=== PATIENT | female | born 1955 | race African-American/Black ===

== ENCOUNTER 2016-07-27 14:13 | Emergency (ER) | payer OTHER ==
[2016-07-27] MEDS ORDERED: Acetaminophen 500 MG TAB ONE (14:37)
[2016-07-27] MEDS ORDERED: Ibuprofen 200 MG TAB ONE ×2 (14:37→14:56)
[2016-07-27] MEDS ORDERED: cefTRIAXone\\ROCEPHIN 2 GM VIAL ONE (14:37)
[2016-07-27] MEDS ORDERED: Lidocaine 1% 20 ML MDV ONE (14:39)
== END 2016-07-27 15:21 | disposition home or self-care (01) ==
LOC: NAV ERS 14:13
DX: K04.7 Periapical abscess without sinus (principal); L03.211 Cellulitis of face; Z95.0 Presence of cardiac pacemaker
CPT/HCPCS: 96372; J0696; J2001

== ENCOUNTER 2016-12-25 23:24 | Emergency (ER) | payer OTHER ==
--- NOTE | 2016-12-26 07:28 | RAD ---
LEFT ANKLE 3 VIEWS: HISTORY: The patient reports pain. Injury. COMPARISON: None. FINDINGS: There is soft tissue swelling. Joint spaces are preserved. No fracture. No malalignment. Possible degenerative changes and pes planus deformity involving the mid foot. Dedicated left foot radiograph is recommended. There is evidence of soft tissue swelling of the left foot. IMPRESSION: 1. Extensive soft tissue swelling noted in the ankle and left foot. 2. Possible degenerative changes in the mid foot. Dedicated foot radiograph is recommended to excl ude pes planus deformity. Images should be performed with the patient bearing weight. POS: [facility]
== END 2016-12-26 00:17 | disposition home or self-care (01) ==
LOC: NAV ERS 23:24
DX: M25.472 Effusion, left ankle (principal); R60.0 Localized edema; G40.909 Epilepsy, unspecified, not intractable, without status epilepticus; Z79.899 Other long term (current) drug therapy

== ENCOUNTER 2017-07-09 11:02 | Emergency (ER) | payer OTHER | END 2017-07-09 11:55 | disposition home or self-care (01) | LOC: NAV ERS 11:02 | DX: S63.91XA Sprain of unspecified part of right wrist and hand, initial encounter (principal); R60.0 Localized edema; R56.9 Unspecified convulsions; Z79.899 Other long term (current) drug therapy; X58.XXXA Exposure to other specified factors, initial encounter | CPT/HCPCS: 99283 ==

== ENCOUNTER 2018-02-07 19:09 | Emergency (ER) | payer OTHER ==
[~2018-02-07 19:09] MED LIST: Iopamidol 370 76% 100 ML VIAL ONE
[2018-02-07 21:00] LABS: #Lymphocytes 1.1 thou/uL (1.20-3.40); #Monocytes 0.4 thou/uL (0.11-0.59); #Neutrophils 1.4 thou/uL (1.40-6.50); %Basophils 0.6 % (0.0-1.0); %Eosinophils 1.3 % (0.0-10.0); %Lymphocytes 36.1 % (21.0-51.0); %Monocytes 14.4 % (0.0-10.0); %Neutrophils 47.5 % (42.0-75.0); Hemoglobin 10.3 g/dL (12.0-16.0); Mean Corpuscular HGB CONC 30.5 g/dL (32.0-36.0); Mean Corpuscular Hemoglobin 27.3 pg (27.0-31.0); Mean Corpuscular Volume 89.8 fL (78.0-98.0); Mean Platelet Volume 8.5 fL (7.4-10.4); Platelet Count 220 thou/uL (130-400); RBC Distribution Width 13.2 % (11.5-14.5); Red Blood Cell (RBC) Count 3.78 mill/uL (4.20-5.40)
[2018-02-07 21:20] LABS: ALT (SGPT) 10 U/L (8-55); AST (SGOT) 12 U/L (5-34); Albumin 4.5 g/dL (3.4-4.8); Alkaline Phosphatase 87 U/L (40-150); Anion Gap 16 mmol/L (10-20); BUN (Urea Nitrogen) 20 mg/dL (9.8-20.1); Bilirubin, Total 0.2 mg/dL (0.2-1.2); Calc. Creatinine Clearance 0 mL/min (70-130); Calcium 9.7 mg/dL (7.8-10.44); Carbon Dioxide 25 mmol/L (23-31); Chloride 103 mmol/L (98-107); Estimated GFR-MDRD 83; Globulin 3.6 g/dL (2.4-3.5); Glucose 93 mg/dL (80-115); Potassium 4.2 mmol/L (3.5-5.1); Protein, Total 8.1 g/dL (6.0-8.3); Sodium 140 mmol/L (136-145)
--- NOTE | 2018-02-07 21:38 | CT ---
CT ABDOMEN AND PELVIS WITH CONTRAST: HISTORY: Left lower quadrant abdominal pain. COMPARISON: None. TECHNIQUE: Multiple contiguous axial images were obtained in a CT of the abdomen and pelvis with contrast. Katarzyna nal reformats were performed. FINDINGS: The liver, gallbladder, kidneys, adrenal glands, spleen, and pancreas are unremarkable. No free air, free fluid, or stranding changes are seen in the abdomen or pelvis. The large and small bowel are unremarkable. The appendix is not definitely seen. The patient is sta tus post hysterectomy. No abdominal or pelvic lymphadenopathy is seen. Degenerative changes are seen in the spine. The visualized inferior thorax is unremarkable. There i s a 1.6 cm fat-containing umbilical hernia. IMPRESSION: 1. No evidence of acute intraabdominal/pelvic abnormality. 2. Umbilical hernia. POS: [facility]
[2018-02-07 22:04] LABS: Bilirubin Negative (Negative); Blood, Urine Negative (Negative); Clarity Clear (Clear); Glucose, Urine (Dipstick) Negative (Negative); Leukocyte Trace (Negative); Nitrite Negative (Negative); Protein, Urine (Dipstick) Negative (Neg-Trace); Urobilinogen 0.2 mg/dL (0.2-1.0); pH, Urine 7.5 (5.0-9.0)
[2018-02-07 22:05] LABS: Bacteria/HPF Rare-Few HPF (None Seen); RBC/HPF None Seen HPF (0-3)
== END 2018-02-07 23:07 | disposition home or self-care (01) ==
LOC: NAV ERS 19:09
DX: R10.32 Left lower quadrant pain (principal); Z79.899 Other long term (current) drug therapy
CPT/HCPCS: 36415; 74177; 80053; 81003; 81015; 85025

== ENCOUNTER 2018-03-10 11:52 | Emergency (ER) | payer MEDICARE, OTHER ==
--- NOTE | 2018-03-10 12:54 | RAD ---
LEFT FOOT THREE VIEWS: Date: 03-10-18 Comparison: None History: Injury, trauma, pain. FINDINGS: There is degenerative change at the first metatarsal phalangeal joint. There is enthesophyte formatio n at the origin of the plantar aponeurosis. There is no displaced fracture or evidence of dislocation seen. There is dorsal soft tissue swelling involving the midfoot. IMPRESSION: Dorsal soft tissue swelling. No displaced fracture or dislocation seen. POS: [facility]
== END 2018-03-10 13:04 | disposition home or self-care (01) ==
LOC: NAV ERS 11:52
DX: S93.602A Unspecified sprain of left foot, initial encounter (principal); Z79.899 Other long term (current) drug therapy; X50.9XXA Other and unspecified overexertion or strenuous movements or postures, initial encounter
CPT/HCPCS: 96374

== ENCOUNTER 2018-03-13 18:25 | Emergency (ER) | payer MEDICARE, OTHER ==
[2018-03-13] MEDS ORDERED: Acetaminophen 325 MG TAB ONE (19:00)
== END 2018-03-13 19:14 | disposition home or self-care (01) ==
LOC: NAV ERS 18:25
DX: R51 Headache (principal); R56.9 Unspecified convulsions; Z79.899 Other long term (current) drug therapy
CPT/HCPCS: 94760

== ENCOUNTER 2018-05-24 11:28 | Emergency (ER) | payer MEDICARE, OTHER ==
--- NOTE | 2018-05-24 12:02 | RAD ---
EXAM: Left ankle radiographs 3 views PROVIDED CLINICAL HISTORY: Pain FINDINGS: There is no evidence for fracture or other acute osseous abnormality. Alignment appears anatomic. Corie nt spaces appear preserved. Bimalleolar soft tissue swelling. Calcaneal enthesophyte formation. IMPRESSION: No evidence for an acute osseous abnormality. If there is persistent clinical concern, conservative m anagement and follow-up imaging advised.
== END 2018-05-24 12:13 | disposition home or self-care (01) ==
LOC: NAV ERS 11:28
DX: S93.402A Sprain of unspecified ligament of left ankle, initial encounter (principal); Z79.899 Other long term (current) drug therapy; X50.9XXA Other and unspecified overexertion or strenuous movements or postures, initial encounter

== ENCOUNTER 2018-06-09 18:55 | Emergency (ER) | payer MEDICARE, OTHER | END 2018-06-09 19:20 | disposition home or self-care (01) | LOC: NAV ERS 18:55 | DX: K02.9 Dental caries, unspecified (principal); Z79.899 Other long term (current) drug therapy | CPT/HCPCS: 99282 ==

== ENCOUNTER 2018-06-20 12:09 | Emergency (ER) | payer MEDICARE, OTHER ==
--- NOTE | 2018-06-20 13:07 | RAD ---
XR Pelvis AP STANDARD . HISTORY: Pelvic pain. COMPARISON: None. FINDINGS: There are mild arthritic changes of the lower lumbar spine. The pelvic ring is intact witho ut evidence of fracture. Mild arthritic changes SI joints and symphysis regions are seen. IMPRESSION: No acute changes.
--- NOTE | 2018-06-20 13:08 | RAD ---
XR Hip Rt 2-3 View INDICATION: Right hip pain COMPARISON: None FINDINGS: Bones: No acute osseous abnormality. Bone mineralization appears within normal limits. Hip joint: There is mild right hip osteoarthrosis. SI joints and symphysis pubis: There is moderate sepsis pubis and right SI joint osteoarthrosis. Intrapelvic contents: There are vascular calcifications involving the intrapelvic space. There is a m oderate amount of retained stool within the region of the rectum. Surrounding soft tissues: Radiographically normal. IMPRESSION: 1. No acute osseous abnormality demonstrated. There is mild degenerative changes of the right hip. Th ere is a moderate amount of retained stool within the rectum.
== END 2018-06-20 13:22 | disposition home or self-care (01) ==
LOC: NAV ERS 12:09
DX: M16.11 Unilateral primary osteoarthritis, right hip (principal); M47.898 Other spondylosis, sacral and sacrococcygeal region; Z79.899 Other long term (current) drug therapy; Z79.891 Long term (current) use of opiate analgesic
CPT/HCPCS: 72170

== ENCOUNTER 2018-08-13 21:26 | Emergency (ER) | payer MEDICARE, OTHER | END 2018-08-13 21:51 | disposition home or self-care (01) | LOC: NAV ERS 21:26 | DX: R21 Rash and other nonspecific skin eruption (principal) | CPT/HCPCS: 99283 ==

== ENCOUNTER 2018-09-23 15:17 | Emergency (ER) | payer MEDICARE, OTHER | END 2018-09-23 16:19 | disposition home or self-care (01) | LOC: NAV ERS 15:17 | DX: K04.7 Periapical abscess without sinus (principal); K02.9 Dental caries, unspecified; Z79.899 Other long term (current) drug therapy | CPT/HCPCS: 99282 ==

== ENCOUNTER 2018-09-27 16:35 | Emergency (ER) | payer MEDICARE, OTHER ==
[2018-09-27] MEDS ORDERED: Acetaminophen 500 MG TAB ONE (17:07)
[2018-09-27] MEDS ORDERED: Sodium Chloride 0.9% 1,000 ML ONE (17:07)
[2018-09-27 17:26] LABS: #Lymphocytes 0.9 thou/uL (1.20-3.40); #Monocytes 0.6 thou/uL (0.11-0.59); #Neutrophils 3.5 thou/uL (1.40-6.50); %Basophils 0.5 % (0.0-1.0); %Lymphocytes 17.1 % (21.0-51.0); %Monocytes 11.4 % (0.0-10.0); Hemoglobin 11.8 g/dL (12.0-16.0); Mean Corpuscular HGB CONC 30.5 g/dL (32.0-36.0); Mean Corpuscular Hemoglobin 27.4 pg (27.0-31.0); Mean Corpuscular Volume 89.9 fL (78.0-98.0); Mean Platelet Volume 9.1 fL (7.4-10.4); Platelet Count 148 thou/uL (130-400); RBC Distribution Width 13.5 % (11.5-14.5); Red Blood Cell (RBC) Count 4.29 mill/uL (4.20-5.40); White Blood Cell (WBC) Count 4.9 thou/uL (4.8-10.8)
[2018-09-27 17:47] LABS: Anion Gap 20 mmol/L (10-20); BUN (Urea Nitrogen) 17 mg/dL (9.8-20.1); Calc. Creatinine Clearance 0 mL/min (70-130); Calcium 9.4 mg/dL (7.8-10.44); Carbon Dioxide 20 mmol/L (23-31); Chloride 99 mmol/L (98-107); Estimated GFR-MDRD 86; Glucose 66 mg/dL (80-115); Potassium 3.5 mmol/L (3.5-5.1); Sodium 135 mmol/L (136-145)
[2018-09-27 18:04] LABS: Bilirubin Moderate (Negative); Blood, Urine Small (Negative); Clarity Clear (Clear); Glucose, Urine (Dipstick) Negative (Negative); Leukocyte Negative (Negative); Nitrite Negative (Negative); Protein, Urine (Dipstick) 100 mg/dL (Neg-Trace); Urobilinogen 0.2 mg/dL (Less than 2)
[2018-09-27 18:10] LABS: Bacteria/HPF 1+ HPF (None Seen); RBC/HPF 0-3 HPF (0-3); WBC/HPF 0-3 HPF (0-3)
--- NOTE | 2018-09-27 18:49 | CT ---
CT Facial Bones W Con HISTORY: Soft tissue swelling along right side of face. COMPARISON: None. FINDINGS: The visualized brain parenchyma appears unremarkable. Parapharyngeal spaces are clear the t onsillar regions are normal. Small submandibular nodes are present. There is soft tissue swelling on the right side just lateral to the mandible there is some air presen t within the soft tissue in this region and there some mild underlying mandibular dental disease suggesting this as underlying etiology. There is also some maxillary dental disease present which als o could be contributing to these changes. IMPRESSION: Soft tissue swelling along the right side of the mandible and maxilla with underlying den mario disease in this region. No defined abscess collection is seen.
[2018-09-27] MEDS ORDERED: Sodium Chloride 0.9% 500 ML ONE (19:42)
[2018-09-27] MEDS ORDERED: cefTRIAXone\\ROCEPHIN 1 GM VIAL ONE (19:42)
== END 2018-09-27 20:40 | disposition home or self-care (01) ==
LOC: NAV ERS 16:35
DX: K02.9 Dental caries, unspecified (principal); K05.10 Chronic gingivitis, plaque induced; R50.9 Fever, unspecified; Z79.899 Other long term (current) drug therapy
CPT/HCPCS: 36415; 70487; 80048; 81003; 81015; 85025; 96361; 96365; J0696; J7050

== ENCOUNTER 2018-11-01 11:57 | Emergency (ER) | payer MEDICARE, MEDICAID ==
--- NOTE | 2018-11-01 13:21 | RAD ---
RIGHT HIP TWO VIEWS: 11/01/18 HISTORY: Right hip pain. COMPARISON: Comparison made to exam of 06/20/18. Mild degenerative changes are again seen. No fracture, dislocation or bony destruction is identified. IMPRESSION: Stable mild right hip osteoarthritis. POS: OFF
[2018-11-01] MEDS ORDERED: Acetaminophen 500 MG TAB ONE (13:59)
[2018-11-01] MEDS ORDERED: Ketorolac Tromethamine 30 MG/ML VIAL ONE (13:59)
== END 2018-11-01 14:08 | disposition home or self-care (01) ==
LOC: NAV ERS 11:57
DX: M16.11 Unilateral primary osteoarthritis, right hip (principal); Z79.899 Other long term (current) drug therapy
CPT/HCPCS: 96372; J1885

== ENCOUNTER 2018-11-06 11:46 | Emergency (ER) | payer MEDICARE, MEDICAID | END 2018-11-06 12:38 | disposition home or self-care (01) | LOC: NAV ERS 11:46 | DX: K02.9 Dental caries, unspecified (principal); K04.7 Periapical abscess without sinus; Z79.899 Other long term (current) drug therapy | CPT/HCPCS: 99282 ==

== ENCOUNTER 2018-11-28 15:49 | Inpatient (IN) | payer MEDICARE, OTHER ==
[2018-11-28] MEDS ORDERED: Acetaminophen 325 MG TAB PO PRN (18:21)
[2018-11-28] MEDS ORDERED: Lorazepam 2 MG/ML VIAL SLOW IVP PRN (19:14)
[2018-11-28] MEDS ORDERED: Loperamide HCl 2 MG CAP PO PRN (19:14)
[2018-11-28] MEDS ORDERED: Senokot S 8.6-50 MG TAB PO PRN (19:14)
[2018-11-28] MEDS ORDERED: Ondansetron ODT 4 MG TAB PO PRN (19:14)
[2018-11-28] MEDS: Magnesium Oxide 400 MG TAB PO SCH (20:55)
[2018-11-28] MEDS: Calcium Carbonate 500 MG ChewTAB PO PRN (20:55)
[2018-11-28] MEDS ORDERED: levETIRAcetam 500 MG TAB PO SCH (21:00)
[2018-11-28] MEDS: levETIRAcetam 500 mg/5 ml Oral Solution PO SCH (21:04)
[2018-11-28] MEDS: PHENOBARBITAL 60 MG PO SCH (21:35)
--- NOTE | 2018-11-28 22:52 | HP ---
HISTORY OF PRESENT ILLNESS: Ms. Cohen is a 63-year-old black female, who presented to the emergency room by ground ambulance. Apparently, she was found at home having seizures by her family. EMS was called and they brought her to the emergency room at [facility], where she was still seizing. She was given some Ativan and Versed prior to arrival. Her glucose was 97. The patient was seen and had to be intubated in the ER because of acute respiratory distress. She was placed in the intensive care unit. Her phenobarb and Dilantin levels were low. Eventually, she was stabilized and extubated. She has now been stable for several days and being transferred to [facility] for physical therapy and occupational therapy to increase her strength and her stamina. PAST MEDICAL HISTORY: 1. Positive for seizure disorder. 2. Bradycardia treated with pacemaker. 3. Osteoarthritis. 4. Stage III renal insufficiency. PAST SURGICAL HISTORY: 1. Bilateral cataract surgery. 2. Pacemaker. 3. Uterine prolapse repair. 4. Bladder suspension. 5. Hysterectomy. PRESENT MEDICATIONS: Revealed the patient is presently on; 1. Dilantin 400 mg daily. 2. Keppra 1000 mg b.i.d. 3. Phenobarbital 60 mg b.i.d. 4. Magnesium oxide 400 mg b.i.d. 5. Tylenol p.r.n. ALLERGIES: THE PATIENT IS NOTED TO BE ALLERGIC TO PENICILLIN. SOCIAL HISTORY: Reveals the patient does not smoke and does not drink. The patient lives in a one-story house with no steps going in, which is her daughter's house. She states she is not and has been single. FAMILY HISTORY: Reveals the patient's father in his 60s. He had diabetes, coronary artery disease, hypertension, and Alzheimer's. The patient's mother is alive at age 88. She states she is pretty healthy, although she has a history of seizures and heart problems. The patient has 3 children who are alive and healthy. REVIEW OF SYSTEMS: Difficult to elicit because the patient still has some altered mental status. She speaks very slowly and I am not sure if I trust her opinion or her answers at this time. PHYSICAL EXAMINATION: GENERAL: This is a well-developed, well-nourished, slightly obese 63-year-old black female, appears to be in no apparent distress at this time. HEENT: Reveals normocephalic and nontraumatic cranium. The pupils are equally round. Extraocular movements intact. Nose and throat are dry. The patient has a mouth full of dental caries, looks like her teeth have not been brushed in several days. NECK: Supple without masses, nodes, or bruits. CHEST: Clear to auscultation. No rales, no rhonchi, no wheezes, and no cough is heard. HEART: Reveals a regular rate and rhythm without murmurs, gallops, or rubs. Normal S1 and S2 are noted. ABDOMEN: Soft, nontender without organomegaly. No rebound or guarding is noted. Normal bowel sounds are noted in all 4 quadrants. : Deferred. EXTREMITIES: Reveal no clubbing, cyanosis, or edema. The patient has some generalized weakness all over. NEUROLOGIC: The patient is oriented to person and place, but not to time. ASSESSMENT: 1. Status post seizure disorder with status epilepticus and admitted to [facility] on 11/19/2018. 2. Generalized weakness. 3. History of bradycardia, treated with a pacemaker. 4. Osteoarthritis. 5. Encephalopathy, which apparently is somewhat improved. PLAN: 1. The patient is admitted to inpatient swing bed for physical therapy and occupational therapy. 2. Continue to monitor the patient for any seizure activities. 3. The patient has had some renal insufficiency, so we will recheck her labs tomorrow morning. 4. Encourage the patient to eat and drink well. 5. Stress ulcer prophylaxis. 6. Decubitus precautions. 7. Deep venous thrombosis prophylaxis. 8. Physical therapy and occupational therapy. 9. Speech therapy. Job ID: [id number]
[2018-11-29 00:36] LABS: Bilirubin Negative (Negative); Blood, Urine Moderate (Negative); Clarity Clear (Clear); Glucose, Urine (Dipstick) Negative (Negative); Leukocyte Trace (Negative); Nitrite Negative (Negative); Protein, Urine (Dipstick) Negative (Neg-Trace); Urobilinogen 0.2 mg/dL (Less than 2)
[2018-11-29 00:39] LABS: Bacteria/HPF None Seen HPF (None Seen); WBC/HPF None Seen HPF (0-3)
[2018-11-29 05:54] LABS: #Basophils 0.1 thou/uL (0.0-0.2); #Eosinphils 0.1 thou/uL (0.0-0.7); #Lymphocytes 0.8 thou/uL (1.20-3.40); #Monocytes 0.6 thou/uL (0.11-0.59); #Neutrophils 5.7 thou/uL (1.40-6.50); %Basophils 0.8 % (0.0-1.0); %Lymphocytes 10.5 % (21.0-51.0); %Monocytes 8.4 % (0.0-10.0); %Neutrophils 78.3 % (42.0-75.0); Hemoglobin 8.9 g/dL (12.0-16.0); Mean Corpuscular Hemoglobin 28.1 pg (27.0-31.0); Mean Corpuscular Volume 87.8 fL (78.0-98.0); Mean Platelet Volume 7.9 fL (7.4-10.4); Platelet Count 205 thou/uL (130-400); RBC Distribution Width 14.6 % (11.5-14.5); Red Blood Cell (RBC) Count 3.17 mill/uL (4.20-5.40); White Blood Cell (WBC) Count 7.3 thou/uL (4.8-10.8)
[2018-11-29 06:11] LABS: ALT (SGPT) 11 U/L (8-55); AST (SGOT) 16 U/L (5-34); Albumin 2.9 g/dL (3.4-4.8); Alkaline Phosphatase 57 U/L (40-110); Anion Gap 12 mmol/L (10-20); BUN (Urea Nitrogen) 16 mg/dL (9.8-20.1); Bilirubin, Total 0.3 mg/dL (0.2-1.2); Calc. Creatinine Clearance 32 mL/min (70-130); Calcium 8.3 mg/dL (7.8-10.44); Carbon Dioxide 24 mmol/L (23-31); Chloride 114 mmol/L (98-107); Estimated GFR-MDRD 34; Globulin 2.8 g/dL (2.4-3.5); Glucose 98 mg/dL (80-115); Magnesium 1.9 mg/dL (1.6-2.6); Protein, Total 5.7 g/dL (6.0-8.3); Sodium 146 mmol/L (136-145)
[2018-11-29] MEDS: Magnesium Oxide 400 MG TAB PO SCH ×2 (08:54→20:31)
[2018-11-29] MEDS: levETIRAcetam 500 mg/5 ml Oral Solution PO SCH ×2 (08:54→20:31)
[2018-11-29] MEDS: PHENOBARBITAL 60 MG PO SCH (08:55)
[2018-11-29] MEDS ORDERED: Prevnar 13-Val Conj/PF 0.5 ML SYRINGE IM ONE (09:00)
[2018-11-29] MEDS ORDERED: FLU VACC TS2019-20(65YR UP)/PF 180 MCG/0.5 ML SYRINGE IM ONE (09:00)
[2018-11-29] MEDS ORDERED: FLU VACC QS2019-20(6MOS UP)/PF 60 MCG/0.5 ML SYRINGE IM ONE (09:30)
--- NOTE | 2018-11-29 10:23 | PRG ---
DATE OF SERVICE: 11/29/2018 SUBJECTIVE: This is a well-developed, well-nourished, very pleasant 63-year-old white female transferred from [facility]. She was admitted there with status epilepticus. She eventually was stabilized, intubated, and treated. She eventually was extubated from Intensive Care Unit. Phenobarb and Dilantin were increased, and she was transferred to [facility] for PT, OT, and Speech Therapy. The patient states she did well last night and is presently in therapy and walking probably about 30 feet so far this morning. She is very slow and very guarded and walks about 3 to 6 inches at a time. She stops and rests quite a bit. This is much improved than she was yesterday. The therapist was able to do a max assist, but it was one person rather than two persons. OBJECTIVE: VITAL SIGNS: Today reveal blood pressure this morning 155/82, pulse 88 to 96, respirations 18 to 20, O2 saturation is 96% to 100% on room air, and T-max is 100.5. GENERAL: This is a well-developed, well-nourished, pleasant, slow speaking black female, in no apparent distress at this time. HEENT: Reveals normocephalic and nontraumatic cranium. Pupils are equally round and reactive. Extraocular movements are intact. Nose and throat are slightly dry, but clear. NECK: Supple without masses, nodes, or bruits. CHEST: Clear to auscultation. No cough. No rales. No rhonchi. No wheezes are heard. HEART: Reveals a regular rate and rhythm without murmurs, gallops, or rubs. ABDOMEN: Soft and nontender without organomegaly. Normal bowel sounds are noted. No rebound or guarding is noted. : Deferred. EXTREMITIES: Reveal no clubbing, cyanosis, or edema. NEUROLOGIC: The patient is oriented to person and place, but not to time. ASSESSMENT: 1. Status post seizure disorder with status epilepticus, now transferred to [facility]. 2. History of bradycardia, treated with pacemaker. 3. Osteoarthritis. 4. Encephalopathy, which is somewhat improved. 5. Generalized weakness. PLAN: 1. Continue physical therapy and occupational therapy. 2. Encourage the patient to eat well. 3. Continue to follow the patient's renal insufficiency. Her creatinine is 1.8 today, which is up from 1.6 yesterday. 4. Encourage the patient to continue to eat and drink well. 5. Stress ulcer prophylaxis. 6. Decubitus precautions. 7. Deep venous thrombosis prophylaxis. 8. Physical therapy and occupational therapy. 9. Speech therapy. Job ID: [id number]
[2018-11-29] MEDS ORDERED: Senokot S 8.6-50 MG TAB PO PRN (12:14)
[2018-11-29] MEDS ORDERED: Polyethylene Glycol 3350 17 GM Packet PO SCH (14:45)
[2018-11-29] MEDS: PHENOBARBITAL 32.4 MG PO SCH (20:32)
[2018-11-30] MEDS: Calcium Carbonate 500 MG ChewTAB PO PRN (05:20)
[2018-11-30 06:13] LABS: #Eosinphils 0.1 thou/uL (0.0-0.7); #Lymphocytes 0.6 thou/uL (1.20-3.40); #Monocytes 0.4 thou/uL (0.11-0.59); #Neutrophils 5.7 thou/uL (1.40-6.50); %Basophils 0.4 % (0.0-1.0); %Eosinophils 1.5 % (0.0-10.0); %Lymphocytes 8.2 % (21.0-51.0); %Monocytes 6.4 % (0.0-10.0); %Neutrophils 83.4 % (42.0-75.0); Hemoglobin 9.2 g/dL (12.0-16.0); Mean Corpuscular Hemoglobin 27.7 pg (27.0-31.0); Mean Corpuscular Volume 86.6 fL (78.0-98.0); Mean Platelet Volume 8.3 fL (7.4-10.4); Platelet Count 211 thou/uL (130-400); RBC Distribution Width 14.7 % (11.5-14.5); White Blood Cell (WBC) Count 6.8 thou/uL (4.8-10.8)
[2018-11-30 06:30] LABS: Anion Gap 15 mmol/L (10-20); BUN (Urea Nitrogen) 16 mg/dL (9.8-20.1); Calc. Creatinine Clearance 35 mL/min (70-130); Calcium 8.5 mg/dL (7.8-10.44); Carbon Dioxide 24 mmol/L (23-31); Chloride 108 mmol/L (98-107); Estimated GFR-MDRD 38; Glucose 98 mg/dL (80-115); Potassium 3.6 mmol/L (3.5-5.1); Sodium 143 mmol/L (136-145)
[2018-11-30] MEDS: Magnesium Oxide 400 MG TAB PO SCH ×2 (08:33→21:34)
[2018-11-30] MEDS: levETIRAcetam 500 mg/5 ml Oral Solution PO SCH ×2 (08:33→21:34)
[2018-11-30] MEDS: PHENOBARBITAL 32.4 MG PO SCH ×2 (08:34→21:42)
[2018-11-30] MEDS: Polyethylene Glycol 3350 17 GM Packet PO SCH (08:35)
--- NOTE | 2018-11-30 18:20 | PRG ---
DATE OF SERVICE: 11/30/2018 SUBJECTIVE: Ms. Cohen is a well-developed, well-nourished, very pleasant 63-year-old black female transferred from [facility] after being stabilized after having status epilepticus. Unfortunately, she presented there in status epilepticus and had to be intubated and treated in the ICU. She eventually was extubated and started on phenobarb and Dilantin. She was transferred to [facility] for PT, OT, and Speech Therapy to increase her strength and stamina. The patient states she is doing much better today. She is so pleased that she walked so far yesterday. Her laboratories today are much improved and she states she is feeling better and eating better. Her creatinine was 1.8 yesterday and today it is 1.65. She states she is feeling better and has no concerns or complaints. OBJECTIVE: VITAL SIGNS: Reveal blood pressure this morning was 120/65, pulse 84, respirations 18, O2 saturation 96% on room air. T-max is 98.2. GENERAL: On physical exam, this is a well-developed, well-nourished, pleasant black female, in no apparent distress at this time. She states she feels a lot better, is eating better. HEENT: Reveals normocephalic and nontraumatic cranium. Pupils are equally round and reactive. Extraocular movements are intact. Nose and throat are moist today. NECK: Supple without masses, nodes, or bruits. CHEST: Clear to auscultation. No rales, rhonchi, wheezes, or cough is heard. HEART: Reveals a regular rate and rhythm without murmurs, gallops, or rubs. ABDOMEN: Soft and nontender without organomegaly. Normal bowel sounds are noted in all 4 quadrants. No rebound or guarding is noted. : Deferred. EXTREMITIES: Reveal no clubbing, cyanosis, or edema. NEUROLOGIC: The patient is oriented to person and place, but not time today. ASSESSMENT: 1. Status post seizure disorder with status epilepticus that had to be intubated. She is now stabilized and was transferred to [facility] for PT and OT. 2. History of bradycardia, treated with pacemaker. 3. Osteoarthritis. 4. Generalized weakness. 5. Encephalopathy, which continues to improve daily. 6. Stage 3 acute on chronic renal insufficiency. PLAN: 1. Continue to encourage the patient to eat and drink well. 2. Continue to follow the patient's renal insufficiency, most likely repeat that on Tuesday. 3. Stress ulcer prophylaxis. 4. Decubitus precautions. 5. DVT prophylaxis. 6. Continue physical therapy and occupational therapy. 7. Continue speech therapy. Job ID: [id number]
[2018-12-01] MEDS: levETIRAcetam 500 mg/5 ml Oral Solution PO SCH ×2 (08:31→20:40)
[2018-12-01] MEDS: Polyethylene Glycol 3350 17 GM Packet PO SCH (08:31)
[2018-12-01] MEDS: Magnesium Oxide 400 MG TAB PO SCH ×2 (08:32→20:40)
[2018-12-01] MEDS: PHENOBARBITAL 32.4 MG PO SCH ×2 (09:51→20:43)
--- NOTE | 2018-12-01 22:26 | PRG ---
DATE OF SERVICE: 12/01/2018 SUBJECTIVE: Ms. Cohen is a well-developed, well-nourished, very pleasant 63-year-old black female, who initially presented to have consultations at [facility] with status epilepticus. She was intubated and treated in ICU and has noted that her Dilantin and phenobarb levels were low. These were doubled and she was stabilized and extubated. She was then transferred to [facility] for physical therapy and occupational therapy, and speech therapy to increase her strength and stamina. When the patient first got here, she was barely able to stand and today she was walking several feet down the steiner. She states she feels so much better and her appetite is better. Her laboratory results are much improved too. OBJECTIVE: VITAL SIGNS: Today reveal blood pressure 142/72, pulse 83, respirations 18, O2 saturation 96% on room air, T-max 99.2. GENERAL: This is a well-developed, well-nourished, very pleasant 63-year-old black female. She states she feels so much better and her appetite is getting better. HEENT: Normocephalic and nontraumatic cranium. The pupils are equally round and reactive. Extraocular movements are intact. Nose and throat are moist today. NECK: Supple without masses, nodes, or bruits. CHEST: Clear to auscultation. No rales. No rhonchi. No wheezes or cough is heard. HEART: Reveals a regular rate and rhythm without murmurs, gallops, or rubs. ABDOMEN: Soft, slightly pendulous. No organomegaly is able to be felt. Normal bowel sounds are noted. No rebound or guarding is noted. : Deferred. EXTREMITIES: Reveal no clubbing, cyanosis, or edema. The patient is oriented to person, place, and time today. LABORATORY DATA: No labs were done today. The patient states she was feeling better. We have ordered labs for tomorrow. ASSESSMENT: 1. Status post status epilepticus, now stabilized and transferred to [place]. 2. Osteoarthritis. 3. Generalized weakness. 4. History of bradycardia, treated with pacemaker. 5. Encephalopathy, which continues to improve daily. 6. Stage 3 acute on chronic renal insufficiency. PLAN: 1. We will continue to encourage the patient to eat and drink and follow her labs again tomorrow. 2. Continue to follow the patient's renal insufficiency, which has improved from 1.8 to 1.6 yesterday. We will repeat labs tomorrow. 3. Stress ulcer prophylaxis. 4. Decubitus precautions. 5. DVT prophylaxis. 6. Continue physical therapy and occupational therapy. 7. Continue speech therapy. 8. Dr. Wayne Borges will be following this patient over the weekend for me. Job ID: [id number]
[2018-12-02 06:06] LABS: #Eosinphils 0.1 thou/uL (0.0-0.7); #Lymphocytes 0.7 thou/uL (1.20-3.40); #Monocytes 0.4 thou/uL (0.11-0.59); #Neutrophils 2.9 thou/uL (1.40-6.50); %Basophils 0.4 % (0.0-1.0); %Eosinophils 1.7 % (0.0-10.0); %Lymphocytes 16.8 % (21.0-51.0); %Monocytes 10.1 % (0.0-10.0); Mean Corpuscular HGB CONC 31.7 g/dL (32.0-36.0); Mean Corpuscular Hemoglobin 27.3 pg (27.0-31.0); Mean Corpuscular Volume 86.2 fL (78.0-98.0); Mean Platelet Volume 8.9 fL (7.4-10.4); Platelet Count 188 thou/uL (130-400); RBC Distribution Width 14.3 % (11.5-14.5); Red Blood Cell (RBC) Count 2.93 mill/uL (4.20-5.40)
[2018-12-02 06:14] LABS: ALT (SGPT) 11 U/L (8-55); AST (SGOT) 17 U/L (5-34); Albumin 2.8 g/dL (3.4-4.8); Alkaline Phosphatase 48 U/L (40-110); Anion Gap 12 mmol/L (10-20); BUN (Urea Nitrogen) 13 mg/dL (9.8-20.1); Bilirubin, Total 0.3 mg/dL (0.2-1.2); Calc. Creatinine Clearance 38 mL/min (70-130); Calcium 7.9 mg/dL (7.8-10.44); Carbon Dioxide 25 mmol/L (23-31); Chloride 106 mmol/L (98-107); Estimated GFR-MDRD 42; Globulin 2.6 g/dL (2.4-3.5); Glucose 90 mg/dL (80-115); Potassium 3.4 mmol/L (3.5-5.1); Protein, Total 5.4 g/dL (6.0-8.3); Sodium 140 mmol/L (136-145)
[2018-12-02] MEDS: Magnesium Oxide 400 MG TAB PO SCH ×2 (08:51→20:30)
[2018-12-02] MEDS: Polyethylene Glycol 3350 17 GM Packet PO SCH (08:51)
[2018-12-02] MEDS: levETIRAcetam 500 mg/5 ml Oral Solution PO SCH ×2 (08:51→20:28)
[2018-12-02] MEDS: PHENOBARBITAL 32.4 MG PO SCH ×2 (09:16→20:27)
[2018-12-03] MEDS: levETIRAcetam 500 mg/5 ml Oral Solution PO SCH ×2 (08:58→20:41)
[2018-12-03] MEDS: PHENOBARBITAL 32.4 MG PO SCH ×2 (08:58→20:42)
[2018-12-03] MEDS: Magnesium Oxide 400 MG TAB PO SCH ×2 (08:58→20:42)
[2018-12-03] MEDS: Polyethylene Glycol 3350 17 GM Packet PO SCH (08:59)
[2018-12-03 19:32] VITALS: BMI 23.5
[2018-12-03 20:31] VITALS: TEMP 99.4
--- NOTE | 2018-12-03 21:53 | PRG ---
DATE OF SERVICE: 12/03/2018 SUBJECTIVE: The patient feels better, walking in the steiner with no complaints. No lethargy. OBJECTIVE: VITAL SIGNS: Blood pressure is 112/69, temperature is 99, pulse 89, respirations 18, O2 sats 96% on room air. LUNGS: Clear. CARDIAC: Regular rhythm. ABDOMEN: Soft, nontender. SKIN/EXTREMITIES: No edema, clubbing, or cyanosis. LABORATORY DATA: Dilantin level returned 4.2, up from 1.8, but still subtherapeutic. ASSESSMENT: 1. Seizure disorder, on Keppra and subtherapeutic Dilantin. We will continue on this dose, and we will repeat Dilantin level in future. 2. Improving deconditioning. We will continue PT and OT. Job ID: [id number]
--- NOTE | 2018-12-03 22:27 | PRG ---
DATE OF SERVICE: 12/02/2018 SUBJECTIVE: The patient feels well. No further seizures. Now, that she was then replaced back on her Dilantin, however, Dilantin level has not been drawn. She is getting stronger clinically. OBJECTIVE: VITAL SIGNS: Shows temperature is 98.5, pulse 87, respirations 18, O2 sats 95% on room air, blood pressure 115/64. LUNGS: Clear. CARDIAC: Shows regular rhythm. ABDOMEN: Soft, nontender. ASSESSMENT: Status epilepticus, now resolved, back on medication; stable osteoarthritis; improving generalized weakness; stable encephalopathy, improving daily; stable stage 3 kidney disease; stable bradycardia, treated with pacemaker. PLAN: Obtain Dilantin level in the a.m. Continue Keppra 1000 twice daily as well as Dilantin 400 daily. Continue PT and OT. Job ID: [id number]
[2018-12-04] MEDS: levETIRAcetam 500 mg/5 ml Oral Solution PO SCH (08:42)
[2018-12-04] MEDS: PHENOBARBITAL 32.4 MG PO SCH (08:42)
[2018-12-04] MEDS: Magnesium Oxide 400 MG TAB PO SCH (08:42)
[2018-12-04] MEDS: Polyethylene Glycol 3350 17 GM Packet PO SCH (08:42)
[2018-12-04] MEDS ORDERED: Iopamidol 370 76% 100 ML VIAL ONE (09:00)
--- NOTE | 2018-12-04 14:24 | PRG ---
DATE OF SERVICE: 12/04/2018 SUBJECTIVE: Ms. Cohen is a well-developed, well-nourished, pleasant 63-year-old female who presented in status epilepticus at [facility] in consultation. She was intubated and treated in ICU, and noted that Dilantin and phenobarb levels were low. These were doubled and she was stabilized and extubated. She was then transferred to [facility] for PT and OT to increase her strength and stamina. The first day she got here, she was barely able to stand and now she is able to walk, although she says she is pretty tired today. OBJECTIVE: VITAL SIGNS: Today reveal blood pressure 112/69, pulse 89, respirations 18, O2 saturation 96% on room air, and T-max 99.4. GENERAL: This is a well-developed, well-nourished, very pleasant female, in no apparent distress at this time. HEENT: Reveals normocephalic and nontraumatic cranium. Pupils are equally round and reactive. Extraocular movements are intact. Nose and throat are slightly dry. NECK: Supple without masses, nodes, or bruits. CHEST: Clear to auscultation. No rales, rhonchi, or wheezes are heard. HEART: Reveals a regular rate and rhythm without murmurs, gallops, or rubs. ABDOMEN: Soft and nontender without organomegaly. Normal bowel sounds are noted. No rebound or guarding is noted. : Deferred. EXTREMITIES: Reveal no clubbing, cyanosis, or edema. ASSESSMENT: 1. Seizure disorder, the patient is on Keppra and subtherapeutic Dilantin. We will repeat her labs. 2. We will continue to follow that closely. 3. Osteoarthritis. 4. History of bradycardia. 5. Encephalopathy, much improved. 6. Stage 3 acute on chronic renal insufficiency. 7. Generalized weakness. PLAN: 1. Continue to encourage the patient to eat and drink, which she is slowly getting better. 2. Monitor the patient's renal insufficiency closely. 3. Monitor the patient's Dilantin level, which is still therapeutic, but improving. 4. Decubitus precautions. 5. DVT prophylaxis. 6. Physical therapy and occupational therapy. 7. Speech therapy. Job ID: [id number]
--- NOTE | 2018-12-04 15:50 | CT ---
CT ANGIOGRAM OF THE CHEST: HISTORY: Acute onset shortness of breath. Decreased O2 saturation. COMPARISON: None. TECHNIQUE: CT angiogram of the chest is performed in the axial plane. Three-dimensional reformatted images are s ubmitted for interpretation. FINDINGS: Mediastinum: No mass, lymphadenopathy or hematoma. Heart: Enlarged. No significant pericardial fluid. Aorta: No aneurysm or dissection. Upper solid abdominal viscera: Possible hydronephrosis in the visualized right renal pelvis. Trachea and central bronchi: Patent. Pleural spaces: Small left-sided pleural effusion. Lung parenchyma: Left lower lobe consolidation due to atelectasis, pneumonia or aspiration. Pneumothorax: None. Osseous structures: Mild S-swartz curvature of the thoracic and upper lumbar spine. Pulmonary arteries:There is a filling defect involving the distal main pulmonary artery with extensio n of filling defect into the proximal left main pulmonary artery and the right main pulmonary artery. Filling defect extends into the right upper lobe artery, middle lobe artery and right lower l obe pulmonary artery. There is filling defect involving a segmental branch of the left upper lobe. IMPRESSION: 1. Extensive pulmonary artery emboli predominantly in the right lung pulmonary arterial system. 2. Possible right-sided hydronephrosis. Nonemergent renal ultrasound can be performed. Results of the study discussed with Dr. Santamaria 12/03/2018 at 3:49 PM. Code CR Transcribed Date/Time: 12/04/2018 3:58 PM
[2018-12-04] MEDS ORDERED: Apixaban 5 MG TAB PO SCH ×2 (16:30→21:00)
[2018-12-04 20:08] VITALS: BP 125/78
--- NOTE | 2018-12-05 12:17 | DIS ---
DATE OF ADMISSION: 11/28/2018 DATE OF DISCHARGE: 12/04/2018 HOSPITAL COURSE: Ms. Cohen is a well-developed, well-nourished, pleasant 63-year-old female, who was seen at [facility] with status epilepticus in the ER. She was intubated and treated in the ICU. Her Dilantin and phenobarbital levels were noted to be low. These were stabilized and doubled, and she was extubated and stabilized. She was transferred to [facility] for continued physical therapy and occupational therapy to increase her strength and stamina. Yesterday morning, she was doing very well, getting ready to go walking, and states she felt great and was eating better. No constipation and no problems. Yesterday afternoon, she developed acute onset of shortness of breath. CT scan was ordered, which revealed a large pulmonary embolus in her left lung. We contacted the transfer service, who contacted Dr. Weiner, but Dr. Weiner said that [facility] beds were full, so the patient was referred then to [facility]. We did not get any phone calls back. Eventually, we did talk with the ER over there and they said that their beds were full and they recommended that we contact the fish and wildlife biologist. I did contact Dr. Sanjeev Dominguez, who recommended that we send the patient to [facility] ER holding until they could find a room for her and they would treat her there. Eventually, the patient was transferred to [place] for treatment of her pulmonary embolus. When she left the hospital here, her vital signs were stable. She was on 11 L non-rebreather bag and her oxygen saturations were 92% to 93%. She was not in any respiratory distress per the nurses report to me. The patient was transferred via ground ambulance. ASSESSMENT: 1. Large pulmonary embolus to the right lung. 2. Recent history of seizure disorder with status epilepticus. Presently, on Keppra, Dilantin, and phenobarb. 3. Osteoarthritis. 4. History of bradycardia. 5. Encephalopathy, much improved. 6. Stage 3 acute on chronic renal insufficiency. 7. Generalized weakness. PLAN: The patient is transferred to a higher level of care at [facility] via ground ambulance for treatment of her pulmonary embolus. Prior to discharge, she was started on apixaban 10 mg. Job ID: [id number]
[2018-12-12] MEDS ORDERED: Apixaban 5 MG TAB PO SCH (09:00)
== END 2018-12-04 20:30 | disposition short-term general hospital (02) | DRG 947 ==
LOC: NAV ACUTE 15:49
PROVIDERS: ADMIT Family Medicine; ATTEND Family Medicine
DX: R53.1 Weakness (principal); I26.99 Other pulmonary embolism without acute cor pulmonale; G93.40 Encephalopathy, unspecified; G40.901 Epilepsy, unspecified, not intractable, with status epilepticus; M19.91 Primary osteoarthritis, unspecified site; N18.3 Chronic kidney disease, stage 3 (moderate); R53.81 Other malaise; Z95.0 Presence of cardiac pacemaker; Z98.42 Cataract extraction status, left eye; Z98.41 Cataract extraction status, right eye; Z90.710 Acquired absence of both cervix and uterus; Z88.0 Allergy status to penicillin
CPT/HCPCS: 36415; 71275; 80048; 80053; 80185; 81001; 83735; 85025; 85379; 90471; 90686; G0008; Q9967

== ENCOUNTER 2018-12-08 17:41 | Inpatient (IN) | payer MEDICARE, MEDICAID ==
[2018-12-08] MEDS: Apixaban 5 MG TAB PO SCH (20:54)
[2018-12-08] MEDS: PHENOBARBITAL 60 MG PO SCH (20:54)
[2018-12-08] MEDS: levETIRAcetam 500 MG TAB PO SCH (20:54)
[2018-12-09 05:34] LABS: #Basophils 0.1 thou/uL (0.0-0.2); #Eosinphils 0.2 thou/uL (0.0-0.7); #Lymphocytes 1.2 thou/uL (1.20-3.40); #Monocytes 0.4 thou/uL (0.11-0.59); %Basophils 1.1 % (0.0-1.0); %Eosinophils 4.3 % (0.0-10.0); %Lymphocytes 24.2 % (21.0-51.0); %Monocytes 8.1 % (0.0-10.0); %Neutrophils 62.2 % (42.0-75.0); Hemoglobin 8.8 g/dL (12.0-16.0); Mean Corpuscular HGB CONC 31.8 g/dL (32.0-36.0); Mean Corpuscular Hemoglobin 28.1 pg (27.0-31.0); Mean Corpuscular Volume 88.2 fL (78.0-98.0); Mean Platelet Volume 10.2 fL (7.4-10.4); Platelet Count 242 thou/uL (130-400); RBC Distribution Width 14.6 % (11.5-14.5); Red Blood Cell (RBC) Count 3.14 mill/uL (4.20-5.40); White Blood Cell (WBC) Count 4.8 thou/uL (4.8-10.8)
[2018-12-09 05:53] LABS: Anion Gap 14 mmol/L (10-20); BUN (Urea Nitrogen) 4 mg/dL (9.8-20.1); Calc. Creatinine Clearance 86 mL/min (70-130); Calcium 7.6 mg/dL (7.8-10.44); Carbon Dioxide 22 mmol/L (23-31); Chloride 110 mmol/L (98-107); Dilantin 9.9 ug/mL (10.0-20.0); Estimated GFR-MDRD Greater than 90; Glucose 86 mg/dL (80-115); Sodium 143 mmol/L (136-145)
[2018-12-09 06:12] LABS: Potassium 2.9 mmol/L (3.5-5.1)
[2018-12-09] MEDS: levETIRAcetam 500 MG TAB PO SCH ×2 (08:23→21:10)
[2018-12-09] MEDS: Potassium Chloride 20 MEQ TAB PO SCH ×3 (08:23→21:12)
[2018-12-09] MEDS: Apixaban 5 MG TAB PO SCH ×2 (08:24→21:10)
[2018-12-09] MEDS: PHENOBARBITAL 60 MG PO SCH ×2 (08:45→21:12)
[2018-12-10 05:49] LABS: Anion Gap 13 mmol/L (10-20); BUN (Urea Nitrogen) 4 mg/dL (9.8-20.1); Calc. Creatinine Clearance 86 mL/min (70-130); Calcium 7.8 mg/dL (7.8-10.44); Carbon Dioxide 22 mmol/L (23-31); Chloride 110 mmol/L (98-107); Estimated GFR-MDRD Greater than 90; Glucose 88 mg/dL (80-115); Potassium 3.7 mmol/L (3.5-5.1); Sodium 141 mmol/L (136-145)
[2018-12-10] MEDS: PHENOBARBITAL 60 MG PO SCH ×2 (08:19→21:03)
[2018-12-10] MEDS: Apixaban 5 MG TAB PO SCH ×2 (08:21→21:03)
[2018-12-10] MEDS: levETIRAcetam 500 MG TAB PO SCH ×2 (08:21→21:03)
[2018-12-10] MEDS: Potassium Chloride 20 MEQ TAB PO SCH (08:22)
--- NOTE | 2018-12-10 23:10 | PRG ---
DATE OF SERVICE: 12/10/2018 SUBJECTIVE: Ms. Cohen is a very pleasant, 63-year-old black female, actually was seen initially at [facility] with status epilepticus in the ER. She was intubated, treated in the ICU, stabilized. Noted that her Dilantin and phenobarbital were both low. These were doubled, and she was extubated and stabilized. She was also started on Keppra. She was transferred here for physical therapy and occupational therapy. Apparently, she became acutely ill with shortness of breath and oxygen saturations in the 80s. She was a nonrebreather, which brought up to 94, and she was transferred to [facility], where she was found to have a large pulmonary embolus, most likely saddle embolus. She was treated conservatively. She has actually done very very well. She was transferred back to [facility] on the , and seen by nurse practitioner, Omayra Reyes. She has done very well. I am not seeing her tonight. States she feels much better. OBJECTIVE: VITAL SIGNS: Today reveal blood pressure 102/56, pulse 90 to 103, respirations 20, O2 saturation 92% to 93% on room air. LABORATORY DATA: Yesterday revealed white count 4000, hemoglobin 8.8, hematocrit 27.7, platelet count 242,000. Chemistry today revealed sodium 141, potassium 3.7, chloride 110, carbon dioxide 22 with a creatinine of 0.64 and a GFR greater than 90. Sugar was 88. Calcium was 7.8. PHYSICAL EXAMINATION: GENERAL: This is a well-developed, well-nourished, very pleasant, black female, in no apparent distress at this time. HEENT: Reveals normocephalic and nontraumatic cranium. Pupils are equally round and reactive. Extraocular movements are intact. Nose and throat are slightly dry. NECK: Supple without masses, nodes, or bruits. CHEST: Clear to auscultation. No rales, rhonchi, or wheezes are heard. HEART: Reveals a regular rate and rhythm without murmurs, gallops, or rubs. ABDOMEN: Soft and nontender without organomegaly. Normal bowel sounds are noted. No rebound or guarding is noted. : Deferred. EXTREMITIES: Reveal no clubbing or cyanosis. Possibly trace edema noted bilaterally. ASSESSMENT: 1. Seizure disorder. The patient is presently on Keppra, Dilantin, and phenobarbital. 2. Status post large pulmonary emboli with possible saddle embolus. The patient is on Eliquis. 3. Osteoarthritis. 4. History of bradycardia. 5. Encephalopathy, resolved. 6. Stage 3 [id number] renal insufficiency. 7. Generalized weakness. PLAN: 1. Continue to encourage the patient to eat and drink when she is much better. 2. Continue to monitor the patient's renal insufficiency. 3. Monitor the patient's Dilantin level. 4. Decubitus precautions. 5. DVT prophylaxis. 6. Physical therapy and occupational therapy. 7. Speech therapy. Job ID: [id number]
[2018-12-11 05:36] LABS: #Eosinphils 0.2 thou/uL (0.0-0.7); #Lymphocytes 1.3 thou/uL (1.20-3.40); #Monocytes 0.4 thou/uL (0.11-0.59); #Neutrophils 2.6 thou/uL (1.40-6.50); %Basophils 0.4 % (0.0-1.0); %Eosinophils 3.7 % (0.0-10.0); %Lymphocytes 28.4 % (21.0-51.0); %Neutrophils 58.5 % (42.0-75.0); Hemoglobin 8.6 g/dL (12.0-16.0); Mean Corpuscular HGB CONC 32.2 g/dL (32.0-36.0); Mean Corpuscular Hemoglobin 28.3 pg (27.0-31.0); Mean Platelet Volume 8.5 fL (7.4-10.4); Platelet Count 267 thou/uL (130-400); RBC Distribution Width 15.2 % (11.5-14.5); Red Blood Cell (RBC) Count 3.05 mill/uL (4.20-5.40); White Blood Cell (WBC) Count 4.4 thou/uL (4.8-10.8)
[2018-12-11 05:56] LABS: ALT (SGPT) 11 U/L (8-55); AST (SGOT) 13 U/L (5-34); Albumin 2.6 g/dL (3.4-4.8); Alkaline Phosphatase 45 U/L (40-110); Anion Gap 11 mmol/L (10-20); BUN (Urea Nitrogen) 4 mg/dL (9.8-20.1); Bilirubin, Total 0.2 mg/dL (0.2-1.2); Calc. Creatinine Clearance 88 mL/min (70-130); Carbon Dioxide 22 mmol/L (23-31); Chloride 111 mmol/L (98-107); Estimated GFR-MDRD Greater than 90; Globulin 2.4 g/dL (2.4-3.5); Glucose 89 mg/dL (80-115); Potassium 4.1 mmol/L (3.5-5.1); Sodium 140 mmol/L (136-145)
[2018-12-11] MEDS: levETIRAcetam 500 MG TAB PO SCH ×2 (08:21→20:15)
[2018-12-11] MEDS: Apixaban 5 MG TAB PO SCH ×2 (08:21→20:15)
[2018-12-11] MEDS: PHENOBARBITAL 60 MG PO SCH (08:22)
[2018-12-11] MEDS: Potassium Chloride 20 MEQ TAB PO SCH (08:23)
[2018-12-11] MEDS: Acetaminophen 325 MG TAB PO PRN (08:24)
[2018-12-11 15:27] VITALS: BMI 22.5
--- NOTE | 2018-12-11 19:07 | PRG ---
DATE OF SERVICE: 12/11/2018 SUBJECTIVE: Ms. Cohen is a very pleasant, 63-year-old, black female, initially seen in the emergency room with status epilepticus. She had to be intubated at [facility] and admitted to the ICU. She eventually was stabilized and found to have a low Dilantin and phenobarb level. She was also started on Keppra, and her medications were adjusted. She was transferred to [facility] for PT and OT. She became acutely ill with shortness of breath several days after being here and was found to have a large pulmonary embolus, most likely saddle embolus. She was treated conservatively and has actually done very well. She returns on Eliquis and states she is walking around quite a bit. She states she feels much better, she is eating better, and she is off her oxygen. OBJECTIVE: GENERAL: This is a well-developed, well-nourished, very pleasant, 63-year-old, black female, in no apparent distress at this time. She is actually happy and smiling. She states she did really well today. HEENT: Reveals normocephalic and nontraumatic cranium. The pupils are equally round and reactive. Extraocular movements are intact. Nose and throat are slightly dry, but clear. NECK: Supple without masses, nodes, or bruits. CHEST: Clear to auscultation. No rales, rhonchi, or wheezes are heard. HEART: Reveals a regular rate and rhythm without murmurs, gallops, or rubs. ABDOMEN: Soft and nontender without organomegaly. Normal bowel sounds are noted. No rebound or guarding is noted. : Deferred. EXTREMITIES: Reveal no clubbing, cyanosis, or edema. ASSESSMENT: 1. Seizure disorder, presently on Keppra, Dilantin, and phenobarbital. 2. Large pulmonary emboli, possible saddle embolus. The patient is on Eliquis and doing well and off oxygen. 3. Osteoarthritis. 4. History of bradycardia. 5. Encephalopathy. 6. Stage 3 [id number] renal insufficiency. 7. Generalized weakness. PLAN: 1. Continue to encourage the patient to eat and drink, which she is doing much better. 2. Continue to monitor the patient's renal insufficiency. 3. Monitor the patient's Dilantin level. 4. Decubitus precautions. 5. DVT prophylaxis. 6. Physical therapy and occupational therapy. 7. Speech therapy. Job ID: [id number]
[2018-12-11] MEDS: PHENOBARBITAL 32.4 MG TAB PO SCH (20:15)
[2018-12-12] MEDS: Potassium Chloride 20 MEQ TAB PO SCH (08:06)
[2018-12-12] MEDS: levETIRAcetam 500 MG TAB PO SCH ×2 (08:09→20:32)
[2018-12-12] MEDS: Apixaban 5 MG TAB PO SCH ×2 (08:12→20:32)
[2018-12-12] MEDS: PHENOBARBITAL 32.4 MG TAB PO SCH ×2 (08:13→20:32)
--- NOTE | 2018-12-12 20:08 | PRG ---
DATE OF SERVICE: 12/12/2018 SUBJECTIVE: Ms. Cohen is a well-developed, well-nourished, very pleasant, 63-year-old white female, who was initially admitted back to [facility], I believe on Tuesday by a nurse practitioner, Omayra Reyes. She initially was admitted to the ER with status epilepticus and transferred to the ICU at [facility]. She eventually stabilized on Dilantin, phenobarbital, and Keppra. She was transferred here and was doing very well when she had acute shortness of breath and found to have a large pulmonary embolus, most likely saddle embolus. She was treated conservatively back at [facility] and transferred back here on Tuesday. She is doing better and moving around. She states she is walking better and further every day. She has no concerns or complaints. OBJECTIVE: VITAL SIGNS: Today reveal blood pressure is 109/65, pulse 84, respirations 18, O2 saturation 95% on room air, and T-max 98.7. GENERAL: Well-developed, well-nourished, pleasant 63-year-old black female, in no apparent distress at this time. HEENT: Normocephalic and nontraumatic cranium. Pupils are equal, round, and reactive. Extraocular movements are intact. Nose and throat are slightly dry. NECK: Supple without masses, nodes, or bruits. CHEST: Clear to auscultation. No rales, rhonchi, wheezes, or cough is heard. HEART: Reveals a regular rate and rhythm without murmurs, gallops, or rubs. ABDOMEN: Obese, soft, and nontender without organomegaly. Normal bowel sounds are noted in all 4 quadrants. No rebound or guarding is noted. : Deferred. EXTREMITIES: Reveal no clubbing, cyanosis, or edema. ASSESSMENT: 1. Seizure disorder. Present on Keppra, Dilantin, and phenobarbital. 2. Large pulmonary emboli, possible saddle embolus. Present on Eliquis and doing very well and off oxygen. 3. Osteoarthritis. 4. History of bradycardia. 5. Encephalopathy, resolved. 6. Stage 3 acute on chronic renal insufficiency. 7. Generalized weakness. PLAN: 1. Continue to encourage the patient to do her physical therapy and walk the best she can. 2. Encourage the patient to eat and drink. 3. Continue to monitor the patient's renal insufficiency. 4. Monitor the patient's Dilantin level. 5. Decubitus precautions. 6. DVT prophylaxis. 7. Physical therapy and occupational therapy. 8. Speech therapy. Job ID: [id number]
[2018-12-13] MEDS: Apixaban 5 MG TAB PO SCH ×2 (08:47→20:06)
[2018-12-13] MEDS: levETIRAcetam 500 MG TAB PO SCH ×2 (08:50→20:06)
[2018-12-13] MEDS: Potassium Chloride 20 MEQ TAB PO SCH (08:50)
[2018-12-13] MEDS: PHENOBARBITAL 32.4 MG TAB PO SCH ×2 (09:31→20:07)
--- NOTE | 2018-12-13 14:37 | PRG ---
DATE OF SERVICE: 12/13/2018 SUBJECTIVE: Ms. Cohen is a very pleasant 63-year-old white female admitted to [facility] because of status epilepticus. She was transferred to ICU and her seizures were stabilized with Dilantin, phenobarbital, and Keppra. She was transferred to [facility] and was doing well until she developed acute shortness of breath after 2 or 3 days of being here. She had a large pulmonary embolus and transferred to [facility] for further treatment. She eventually stabilized, now off oxygen, was transferred back to [facility] to continue her physical therapy and occupational therapy. The patient is actually doing very well, walking around and now does not need her Wilkerson. We will stop her Wilkerson catheter today. OBJECTIVE: VITAL SIGNS: Today reveal blood pressure 120/70, pulse 81 to 87, respirations 20, O2 saturation 94% to 95% on room air, and T-max 97.8. GENERAL: This is a well-developed, well-nourished, thin black female, in no apparent distress at this time. HEENT: Normocephalic and nontraumatic cranium. Pupils are equally round and reactive. Extraocular movements intact. Nose and throat are slightly dry. NECK: Supple without masses, nodes, or bruits. CHEST: Clear to auscultation. No rales, rhonchi, or wheezes are heard. HEART: Reveals a regular rate and rhythm without murmurs, gallops, or rubs. ABDOMEN: Soft and nontender without organomegaly. Normal bowel sounds are noted. No rebound or guarding is noted. : Deferred. EXTREMITIES: Reveal no clubbing, cyanosis, or edema. ASSESSMENT: 1. Seizure disorder, presently on Keppra, Dilantin, and phenobarbital. 2. Large pulmonary emboli, saddle embolus present on Eliquis and doing well off oxygen. 3. Osteoarthritis. 4. History of bradycardia. 5. Encephalopathy, resolved. 6. Stage 3 acute on chronic renal insufficiency. 7. Generalized weakness. PLAN: 1. Continue to encourage the patient to do physical therapy, walk best she can. 2. Discontinue Wilkerson catheter at this time. 3. Continue to encourage the patient to eat and drink well. 4. Monitor the patient's renal insufficiency. 5. Monitor the patient Dilantin level. 6. Decubitus precautions. 7. DVT prophylaxis. 8. Physical therapy and occupational therapy. 9. Speech therapy. 10. I did talk with therapy and they felt that because she is home alone by herself during the daytime that she needs another week of physical therapy and occupational therapy. Job ID: [id number]
[2018-12-14] MEDS: levETIRAcetam 500 MG TAB PO SCH ×2 (08:11→21:03)
[2018-12-14] MEDS: Potassium Chloride 20 MEQ TAB PO SCH (08:11)
[2018-12-14] MEDS: Apixaban 5 MG TAB PO SCH ×2 (08:11→21:02)
[2018-12-14] MEDS: PHENOBARBITAL 32.4 MG TAB PO SCH ×2 (08:12→21:07)
--- NOTE | 2018-12-14 19:05 | PRG ---
DATE OF SERVICE: 12/14/2018 SUBJECTIVE: Ms. Cohen is a very pleasant 63-year-old black female. She had status epilepticus and was seen at the emergency room, had to be intubated and transferred to ICU. She was eventually stabilized. Dilantin, phenobarb, and Keppra were maximized, and she was extubated and transferred to [facility]. She unfortunately developed acute shortness of breath after 3 to 4 days at the hospital and had a large pulmonary embolus. She was transferred back to [facility] for further evaluation and treatment. She did receive tPA. She has done actually very well, now transferred back to [facility] for continued physical therapy and occupational therapy. OBJECTIVE: VITAL SIGNS: This morning, reveal blood pressure 100/58, pulse 78 to 80, respirations 20, O2 saturation 94% on room air, and T-max 98.3. GENERAL: This is a well-developed, well-nourished, very pleasant 63-year-old black female, in no apparent distress at this time. HEENT: Reveal normocephalic and nontraumatic cranium. The pupils are equal, round, and reactive. Extraocular movements are intact. Nose and throat are slightly dry, but clear. NECK: Supple without masses, nodes, or bruits. CHEST: Clear to auscultation. No rales, rhonchi, wheezes, or cough is heard. HEART: Reveals a regular rate and rhythm without murmurs, gallops, or rubs. ABDOMEN: Soft, nontender without organomegaly. Normal bowel sounds are noted in all 4 quadrants. No rebound or guarding is noted. : Deferred. EXTREMITIES: Reveal no clubbing, cyanosis, or edema. ASSESSMENT: 1. Seizure disorder, presently stable. 2. Large pulmonary emboli, presently on Eliquis, but did receive tPA. 3. Osteoarthritis. 4. History of bradycardia. 5. Encephalopathy, resolved. 6. Acute stage III chronic renal insufficiency. 7. Generalized weakness. PLAN: 1. Encourage the patient to continue her physical therapy and occupational therapy. 2. We did reach out to Dr. Holcomb, and she was found to have bilateral hydronephrosis. He felt that she would need to keep her Wilkerson catheter until he could see her for evaluation after she is discharged in his office. 3. Renal insufficiency, resolved. 4. Decubitus precautions. 5. DVT prophylaxis. 6. Physical therapy and Occupational Therapy. 7. Speech Therapy. Job ID: [id number]
[2018-12-15] MEDS: Potassium Chloride 20 MEQ TAB PO SCH (08:20)
[2018-12-15] MEDS: levETIRAcetam 500 MG TAB PO SCH ×2 (08:21→21:23)
[2018-12-15] MEDS: Apixaban 5 MG TAB PO SCH ×2 (08:21→21:23)
[2018-12-15] MEDS: PHENOBARBITAL 32.4 MG TAB PO SCH ×2 (08:28→21:24)
--- NOTE | 2018-12-15 14:35 | PRG ---
DATE OF SERVICE: 12/15/2018 SUBJECTIVE: Ms. Cohen is a very pleasant 63-year-old black female who went to [facility] ER with status epilepticus. She was intubated and transferred to ICU. Dilantin, phenobarb, and Keppra levels were stabilized. She was extubated and transferred to [facility]. She remained here 3 to 4 days until she developed acute shortness of breath and had a large pulmonary embolism. She was transferred back to [facility], treated with tPA, has actually done very well. She was transferred back here now to continue physical therapy and occupational therapy. She is walking quite a bit every day and actually today walked 172 feet twice with a rest break in between. She is doing much better, but she lives by herself and needs probably about one more week of therapy to get much more independent. PHYSICAL EXAMINATION: VITAL SIGNS: Today reveal blood pressure 111/67, pulse 77 to 79, respirations 16 to 20, O2 saturation 95% to 97% on room air, and T-max 98.0. GENERAL: This is a well-developed, well-nourished, thin black female, in no apparent distress at this time. HEENT: Reveals normocephalic and nontraumatic cranium. Pupils are equal, round, and reactive. Extraocular movements are intact. Nose and throat are slightly dry. NECK: Supple without masses, nodes, or bruits. CHEST: Clear to auscultation. No rales, rhonchi, wheezes are heard. HEART: Reveals regular rate and rhythm without murmurs, gallops, or rubs. ABDOMEN: Soft, nontender without organomegaly. Normal bowel sounds are noted. No rebound or guarding is noted. : Deferred. EXTREMITIES: Reveal no clubbing, cyanosis, or edema. ASSESSMENT: 1. Seizure disorder, presently stable without any recent seizures. 2. Large pulmonary emboli, probably saddle embolus. Presently on Eliquis. The patient did receive tPA. 3. Osteoarthritis. 4. Bradycardia. 5. Encephalopathy, resolved. 6. Acute stage III chronic renal insufficiency, improved. 7. Generalized weakness. PLAN: 1. Encourage the patient to continue her therapy. 2. The patient does have bilateral hydronephrosis and needs to have an appointment with Dr. Holcomb when she is discharged from this hospital. He will see her in his office for further evaluation and treatment. 3. Renal insufficiency, resolved. 4. Decubitus precautions. 5. DVT prophylaxis. 6. Physical Therapy and Occupational Therapy. 7. Speech Therapy. Job ID: [id number]
[2018-12-16] MEDS: PHENOBARBITAL 32.4 MG TAB PO SCH ×2 (08:35→21:06)
[2018-12-16] MEDS: Apixaban 5 MG TAB PO SCH ×2 (08:37→21:06)
[2018-12-16] MEDS: Potassium Chloride 20 MEQ TAB PO SCH (08:39)
[2018-12-16] MEDS: levETIRAcetam 500 MG TAB PO SCH ×2 (08:39→21:06)
--- NOTE | 2018-12-16 14:01 | PRG ---
DATE OF SERVICE: 12/16/2018 SUBJECTIVE: Ms. Cohen is up in her chair and just finished lunch. She denies any questions or concerns. She is happy with her progress. She denies any chest pain or shortness of breath. No family at bedside. OBJECTIVE: VITAL SIGNS: She is afebrile. Heart rate 79, respirations 18, oxygen saturation 95% on room air, blood pressure 101/59. CARDIOVASCULAR SYSTEM: S1, S2 plus. RESPIRATORY SYSTEM: Normal vesicular breath sounds. ABDOMEN: Soft, nontender. Bowel sounds heard in all quadrants. EXTREMITIES: Without cyanosis, clubbing. CENTRAL NERVOUS SYSTEM: Awake and responsive. Grossly nonfocal, except for weakness. IMPRESSION: 1. Seizure disorder. 2. Pulmonary embolism. 3. Improving deconditioning. 4. Anemia, likely due to chronic disease. PLAN: 1. Continue current medications. 2. Nutritional support. 3. Seizure precautions. 4. Monitor respiratory status. 5. Continue physical therapy. 6. Routine laboratory values. 7. Monitor for any signs or symptoms of bleeding. Job ID: [id number]
[2018-12-17] MEDS: PHENOBARBITAL 32.4 MG TAB PO SCH ×2 (08:29→20:53)
[2018-12-17] MEDS: Apixaban 5 MG TAB PO SCH ×2 (08:32→20:46)
[2018-12-17] MEDS: levETIRAcetam 500 MG TAB PO SCH ×2 (08:33→20:46)
[2018-12-17] MEDS: Potassium Chloride 20 MEQ TAB PO SCH (08:33)
[2018-12-18 05:12] LABS: #Eosinphils 0.1 thou/uL (0.0-0.7); #Lymphocytes 0.9 thou/uL (1.20-3.40); #Monocytes 0.3 thou/uL (0.11-0.59); #Neutrophils 1.2 thou/uL (1.40-6.50); %Basophils 1.1 % (0.0-1.0); %Eosinophils 2.9 % (0.0-10.0); %Lymphocytes 34.3 % (21.0-51.0); %Monocytes 12.9 % (0.0-10.0); %Neutrophils 48.7 % (42.0-75.0); Hemoglobin 8.6 g/dL (12.0-16.0); Mean Corpuscular HGB CONC 31.6 g/dL (32.0-36.0); Mean Corpuscular Hemoglobin 28.6 pg (27.0-31.0); Mean Corpuscular Volume 90.5 fL (78.0-98.0); Mean Platelet Volume 7.2 fL (7.4-10.4); Platelet Count 276 thou/uL (130-400); RBC Distribution Width 15.9 % (11.5-14.5); Red Blood Cell (RBC) Count 2.99 mill/uL (4.20-5.40); White Blood Cell (WBC) Count 2.5 thou/uL (4.8-10.8)
[2018-12-18 05:25] LABS: ALT (SGPT) 11 U/L (8-55); AST (SGOT) 11 U/L (5-34); Albumin 3.1 g/dL (3.4-4.8); Alkaline Phosphatase 67 U/L (40-110); Anion Gap 13 mmol/L (10-20); BUN (Urea Nitrogen) 8 mg/dL (9.8-20.1); Bilirubin, Total 0.2 mg/dL (0.2-1.2); Calc. Creatinine Clearance 78 mL/min (70-130); Calcium 9.1 mg/dL (7.8-10.44); Carbon Dioxide 23 mmol/L (23-31); Chloride 108 mmol/L (98-107); Estimated GFR-MDRD Greater than 90; Globulin 2.9 g/dL (2.4-3.5); Glucose 82 mg/dL (80-115); Potassium 4.6 mmol/L (3.5-5.1); Sodium 139 mmol/L (136-145)
[2018-12-18 05:41] LABS: Bilirubin Negative (Negative); Blood, Urine Small (Negative); Clarity Cloudy (Clear); Glucose, Urine (Dipstick) Negative (Negative); Leukocyte Large (Negative); Nitrite Positive (Negative); Protein, Urine (Dipstick) Negative (Neg-Trace); Urobilinogen 0.2 mg/dL (Less than 2)
[2018-12-18 05:46] LABS: Bacteria/HPF 2+ HPF (None Seen); RBC/HPF 0-3 HPF (0-3); Squamous Epithelial None Seen HPF (0-3)
[2018-12-18 05:47] LABS: Yeast-Budding 1+ HPF (None Seen); Yeast-Hyphae 2+ HPF (None Seen)
[2018-12-18 05:48] LABS: Urine Culture Reflex Yes Yes
[2018-12-18] MEDS: levETIRAcetam 500 MG TAB PO SCH ×2 (08:35→20:14)
[2018-12-18] MEDS: Potassium Chloride 20 MEQ TAB PO SCH (08:39)
[2018-12-18] MEDS: Apixaban 5 MG TAB PO SCH ×2 (08:40→20:15)
[2018-12-18] MEDS: PHENOBARBITAL 32.4 MG TAB PO SCH ×2 (08:56→20:16)
[2018-12-18] MEDS ORDERED: Nitrofurantoin Monohyd/M-Cryst 100 MG CAP PO SCH (10:45)
[2018-12-18] MEDS: Nitrofurantoin Monohyd/M-Cryst 100 MG CAP PO SCH (20:15)
--- NOTE | 2018-12-18 21:44 | PRG ---
DATE OF SERVICE: 12/18/2018 SUBJECTIVE: Ms. Cohen is a pleasant 63-year-old black female, who had status epilepticus and was admitted directly to [facility] ER. She was transferred to ICU and her status was broken with phenobarb, Dilantin and Keppra. She was stabilized and transferred to [facility] and remained here 3 or 4 days until she developed DVT and had a large pulmonary embolus. She was transferred back to [facility], given tPA and continued on Eliquis. She eventually was stabilized, transferred back to [facility], where she is doing well without oxygen and walking 100 feet plus. OBJECTIVE: VITAL SIGNS: Today reveal blood pressure this morning 99/56, pulse 76 to 77, respirations 18, O2 saturation 96% to 97% on room air. T-max 97.9. GENERAL: This is a well-developed, well-nourished, very pleasant, thin black female, in no apparent distress at this time. HEENT: Reveals normocephalic and nontraumatic cranium. Pupils are equal, round, and reactive. Extraocular movements are intact. Nose and throat are slightly dry, but clear. NECK: Supple without masses, nodes, or bruits. CHEST: Clear to auscultation. No rales, rhonchi, or wheezes are heard. HEART: Reveals a regular rate and rhythm without murmurs, gallops, or rubs. ABDOMEN: Soft, nontender without organomegaly. Normal bowel sounds are noted in all 4 quadrants. No rebound or guarding is noted. : Deferred. EXTREMITIES: Reveal no clubbing, cyanosis, or edema. LABORATORY DATA: Today reveals white count 2500, hemoglobin 8.6, hematocrit 27.1, which has improved from last time. Platelet count 276,000. Sodium 139, potassium 4.6, chloride 108, carbon dioxide 23 with a BUN of 8 and creatinine of 0.70 and GFR greater than 90. Her albumin has been coming up from 2.6 to 3.0. ASSESSMENT: 1. Seizure disorder, presently stable without any recent seizures. 2. Large pulmonary emboli, probably saddle embolus, presently on Eliquis and stable. The patient did receive tPA at [facility]. 3. Osteoarthritis. 4. Bradycardia. 5. Encephalopathy, resolved. 6. Acute stage III chronic renal insufficiency, improved. 7. Generalized weakness. PLAN: 1. The patient will continue to participate heavily in physical therapy and occupational therapy. 2. The patient has a Wilkerson catheterization and this will stay inside until she sees Dr. Holcomb when she is discharged from the hospital here. 3. She does have some type of bilateral hydronephrosis and needs to have an appointment with Dr. Holcomb for further evaluation. 4. Renal insufficiency, resolved. 5. Decubitus precautions. 6. DVT prophylaxis. 7. Physical Therapy and Occupational Therapy. 8. Speech Therapy. Job ID: [id number]
[2018-12-19] MEDS: Potassium Chloride 20 MEQ TAB PO SCH (08:23)
[2018-12-19] MEDS: Apixaban 5 MG TAB PO SCH ×2 (08:23→21:11)
[2018-12-19] MEDS: levETIRAcetam 500 MG TAB PO SCH ×2 (08:23→21:10)
[2018-12-19] MEDS: PHENOBARBITAL 32.4 MG TAB PO SCH ×2 (08:24→21:12)
[2018-12-19] MEDS: Nitrofurantoin Monohyd/M-Cryst 100 MG CAP PO SCH ×2 (08:24→21:11)
--- NOTE | 2018-12-19 13:28 | PRG ---
DATE OF SERVICE: 12/19/2018 SUBJECTIVE: Ms. Cohen is a well-developed, well-nourished 63-year-old black female who has status epilepticus. She was admitted to [facility] for status epilepticus. She received phenobarb, Dilantin, and Keppra before her to seizure broke. The patient was stabilized and transferred to [facility]. She was here 3 to 4 days, and then she developed DVT and large pulmonary emboli. Transferred back to [facility], given tPA and continued on Eliquis. She was eventually stabilized, transferred back to [facility] for physical therapy and occupational therapy. She is doing fairly well with her therapy, but her cognitive skills are not as good. Her speech therapy was noted that she has difficulty picking up a word to associate with a picture. For example, there was a picture of a tire in her choices where caterina, car, or tire. She had difficulty with that. After talking with Speech Therapy, Cognitive Therapy, and Physical Therapy and Occupational Therapy, it was felt that the patient needs continued therapy, and we will continue at all through this week and again reassess her next week. OBJECTIVE: VITAL SIGNS: Today reveal blood pressure this morning 93/52, pulse 77/81, respirations 18, O2 saturation 94% to 97% on room air, and T-max 98.5. GENERAL: This is a well-developed, well-nourished, very pleasant 63-year-old black female, in no apparent distress at this time. HEENT: Reveals normocephalic and nontraumatic cranium. Pupils are equal, round, and reactive. Extraocular movements are intact. Nose and throat are dry, but clear. NECK: Supple without masses, nodes, or bruits. CHEST: Clear to auscultation. No rales, rhonchi, wheezes, or cough is noted. HEART: Reveals a regular rate and rhythm without murmurs, gallops, or rubs. ABDOMEN: Scaphoid, soft, nontender without organomegaly. Normal bowel sounds are noted in all 4 quadrants. No rebound or guarding is noted. : Deferred, EXTREMITIES: Reveal no clubbing, cyanosis, or edema. The patient's stamina and strength increased, but cognitive efforts are still somewhat lacking. ASSESSMENT: 1. Seizure disorder, presently stable without recurrent seizures. 2. Large pulmonary emboli, presently still on Eliquis. 3. The patient did receive tPA at [facility]. 4. Osteoarthritis. 5. Bradycardia. 6. Encephalopathy, much improved. 7. Acute stage 3 chronic renal insufficiency, improved. 8. Generalized weakness. PLAN: 1. The patient will continue to have her Wilkerson catheter in place until she sees Dr. Holcomb which will be in 1 to 2 weeks. 2. She does have some type of bilateral hydronephrosis. 3. Renal insufficiency, resolved. 4. Decubitus precautions. 5. DVT prophylaxis. 6. Continue physical therapy and occupational therapy. 7. Continue cognitive and speech therapy. 8. Continue swing bed at this time. Job ID: [id number]
[2018-12-20] MEDS: Acetaminophen 325 MG TAB PO PRN ×3 (08:42→20:39)
[2018-12-20] MEDS: levETIRAcetam 500 MG TAB PO SCH ×2 (08:42→20:38)
[2018-12-20] MEDS: Nitrofurantoin Monohyd/M-Cryst 100 MG CAP PO SCH ×2 (08:43→20:40)
[2018-12-20] MEDS: Potassium Chloride 20 MEQ TAB PO SCH (08:43)
[2018-12-20] MEDS: Apixaban 5 MG TAB PO SCH ×2 (08:43→20:39)
[2018-12-20] MEDS: PHENOBARBITAL 32.4 MG TAB PO SCH ×2 (08:56→20:38)
--- NOTE | 2018-12-20 17:35 | PRG ---
DATE OF SERVICE: 12/20/2018 SUBJECTIVE: Ms. Cohen is a pleasant 63-year-old black female, who unfortunately had status epilepticus, was taken to [facility]. Intubated, transferred to intensive care unit, and her seizures were stopped with phenobarb, Dilantin, and Keppra. She eventually was stabilized and transferred to [facility] for PT/OT, where she had a couple days of therapy. Unfortunately, she would not wear her SCDs and developed a pulmonary embolus from a DVT. She was transferred back to [facility], where she received TPA and actually did very well. She was transferred back to [facility] for continued physical therapy and occupational therapy, off oxygen and walking well. She is still doing fairly well, but has some balance problems and some cognition problems, which are gradually improving. After significant consultation with PT /OT and Speech Therapy, it was felt that she would significantly benefit from another week of therapy. OBJECTIVE: VITAL SIGNS: Today reveal blood pressure this morning 98/56, pulse 70 to 78, respirations 20, O2 saturation 94% to 99% on room air, and T-max 97.4. GENERAL: This is a well-developed, well-nourished, slightly obese black female , in no apparent distress at this time. HEENT: Reveals normocephalic and nontraumatic cranium. Pupils equal, round, and reactive. Extraocular movements are intact. Nose and throat are slightly dry. NECK: Supple without masses, nodes, or bruits. CHEST: Clear to auscultation. No rales, rhonchi, wheezes, or cough is noted. HEART: Reveals a regular rate and rhythm without murmurs, gallops, or rubs. ABDOMEN: Scaphoid, nontender without organomegaly. Normal bowel sounds are noted. No rebound or guarding is noted. : Deferred. EXTREMITIES: Reveal no clubbing, cyanosis, or edema. The patient's stamina has continued to slowly increase, and her cognitive is slowly increasing also, which is good. ASSESSMENT: 1. Seizure disorder. Presently, no recurrent seizures. 2. The patient needed a new prescription, phenobarbital 32.4 mg 2 pills b.i.d., which I did write for a month. 3. Recent large pulmonary emboli, still on Eliquis. 4. The patient did receive TPA at [facility]. 5. Osteoarthritis. 6. Bradycardia. 7. Encephalopathy, much improved. 8. Acute stage 3 on chronic renal insufficiency, improved. 9. Generalized weakness. PLAN: 1. The patient will continue to have a Wilkerson catheter in place until Dr. Holcomb sees her after discharge. 2. She does have some type of bilateral hydronephrosis, which will be evaluated by Dr. Holcomb. 3. Renal insufficiency much improved. 4. Decubitus precautions. 5. DVT prophylaxis. 6. Urinary tract infection, which she is now growing Pseudomonas. It is only sensitive to amikacin, gentamicin, tobramycin, meropenem, and piperacillin. We will start her on some meropenem 1 g IV q.8 hours for 7 days. 7. Continue physical therapy and occupational therapy. 8. Continue speech therapy and cognitive therapy. Job ID: [id number] MTDD
[2018-12-20] MEDS ORDERED: Sodium Chloride 0.9% 40 ML ONE (17:45)
[2018-12-20] MEDS: Meropenem 1 GM in Sodium Chloride 0.9% 100 ML IVPB SCH (18:19)
[2018-12-21] MEDS: Meropenem 1 GM in Sodium Chloride 0.9% 100 ML IVPB SCH ×3 (01:37→17:34)
[2018-12-21] MEDS: levETIRAcetam 500 MG TAB PO SCH ×2 (08:42→20:38)
[2018-12-21] MEDS: Acetaminophen 325 MG TAB PO PRN ×3 (08:42→18:42)
[2018-12-21] MEDS: Potassium Chloride 20 MEQ TAB PO SCH (08:43)
[2018-12-21] MEDS: Nitrofurantoin Monohyd/M-Cryst 100 MG CAP PO SCH (08:43)
[2018-12-21] MEDS: Apixaban 5 MG TAB PO SCH ×2 (08:43→20:38)
[2018-12-21] MEDS: PHENOBARBITAL 32.4 MG TAB PO SCH ×2 (08:53→20:38)
--- NOTE | 2018-12-21 21:48 | PRG ---
DATE OF SERVICE: 12/21/2018 SUBJECTIVE: Ms. Cohen is a very pleasant 63-year-old white female, who presented to [facility] in status epilepticus. She was transferred to intensive care unit, given Dilantin, phenobarb and Keppra, and eventually broke her seizures. She was eventually stabilized and transferred to [facility] for PT and OT. After several days, she developed DVT and pulmonary embolus because she would not wear SCDs. Transferred back to [facility], where she received tPA and actually did very well. She was transferred back to [facility] for continued physical therapy and occupational therapy. She is now off her oxygen and doing much better, but is still somewhat weak and most likely requires about another week of physical therapy and occupational therapy. OBJECTIVE: VITAL SIGNS: Revealed blood pressure 105/60, pulse 74 to 77, respirations 18, O2 saturation 93% to 97% on room air, and T-max 97.9. GENERAL: This is a well-developed, well-nourished, very pleasant, thin black female, in no apparent distress at this time. HEENT: Normocephalic, nontraumatic cranium. Pupils are equal, round, and reactive. Extraocular movements are intact. Nose and throat are still slightly dry. NECK: Supple without masses, nodes, or bruits. CHEST: Clear to auscultation. No rales, rhonchi, wheezes, or cough is heard. HEART: Reveals a regular rate and rhythm without murmurs, gallops, or rubs. ABDOMEN: Scaphoid, nontender without organomegaly. Normal bowel sounds noted in all 4 quadrants. No rebound or guarding is noted. : Deferred. EXTREMITIES: Reveal generalized weakness, but no clubbing, cyanosis, or edema. The patient's stamina continues to slowly increase as she does better. The patient's cognitive responses are slowly getting better also. ASSESSMENT: 1. Seizure disorder, presently without seizures under good control. 2. Large pulmonary emboli, still on Eliquis. 3. Osteoarthritis. 4. Bradycardia. 5. Encephalopathy, much improved. 6. Acute stage 3 on chronic renal insufficiency, improved. 7. Generalized weakness. 8. The patient has urinary hydronephrosis and will be followed by Dr. Holcomb. PLAN: 1. The patient will continue a Wilkerson catheter in place until Dr. Holcomb sees her and evaluates her hydronephrosis. 2. Renal insufficiency, much improved. 3. Decubitus precautions. 4. DVT prophylaxis. 5. The patient presently is on meropenem 1 g IV q.8 hours, will finish next week. 6. Continue physical therapy and occupational therapy. 7. Continue speech therapy and cognitive therapy. Job ID: [id number]
[2018-12-22] MEDS: Meropenem 1 GM in Sodium Chloride 0.9% 100 ML IVPB SCH ×3 (01:37→18:04)
[2018-12-22] MEDS: levETIRAcetam 500 MG TAB PO SCH ×2 (08:14→20:12)
[2018-12-22] MEDS: Potassium Chloride 20 MEQ TAB PO SCH (08:14)
[2018-12-22] MEDS: Apixaban 5 MG TAB PO SCH ×2 (08:15→20:12)
[2018-12-22] MEDS: PHENOBARBITAL 32.4 MG TAB PO SCH ×2 (08:26→20:12)
[2018-12-22] MEDS: Acetaminophen 325 MG TAB PO PRN ×2 (14:58→20:10)
[2018-12-22] MEDS ORDERED: Sodium Chloride 0.9% 10 ML ONE (17:57)
[2018-12-23] MEDS: Meropenem 1 GM in Sodium Chloride 0.9% 100 ML IVPB SCH ×3 (01:03→18:32)
[2018-12-23] MEDS: levETIRAcetam 500 MG TAB PO SCH ×2 (08:24→21:24)
[2018-12-23] MEDS: Potassium Chloride 20 MEQ TAB PO SCH (08:25)
[2018-12-23] MEDS: Apixaban 5 MG TAB PO SCH ×2 (08:25→21:23)
[2018-12-23] MEDS: PHENOBARBITAL 32.4 MG TAB PO SCH ×2 (08:37→21:23)
[2018-12-23] MEDS: Acetaminophen 325 MG TAB PO PRN ×2 (13:49→21:23)
--- NOTE | 2018-12-23 21:26 | PRG ---
DATE OF SERVICE: 12/23/[address] Adrien Santamaria. History of seizure disorder as well as a large pulmonary embolus, who has been admitted to [facility] PT/OT after an episode of status epilepticus and DVT with pulmonary embolus. She has responded very well, on Eliquis getting stronger daily, but she still requires continued PT. Her seizure has been well controlled on medications of Keppra 1000 mg twice daily. She also is on apixaban 10 mg twice daily for DVT and is on meropenem for Pseudomonas urinary tract infection to finish full 2-week course on January 01 and will keep her Wilkerson catheter until seen by Dr. Holcomb after discharge and will have her meropenem discontinued on January 01 after 2 weeks of IV antibiotics. Job ID: [id number]
[2018-12-24] MEDS: Meropenem 1 GM in Sodium Chloride 0.9% 100 ML IVPB SCH ×3 (02:11→17:17)
[2018-12-24] MEDS: PHENOBARBITAL 32.4 MG TAB PO SCH ×2 (08:34→20:39)
[2018-12-24] MEDS: Potassium Chloride 20 MEQ TAB PO SCH (08:35)
[2018-12-24] MEDS: Apixaban 5 MG TAB PO SCH ×2 (08:35→20:40)
[2018-12-24] MEDS: levETIRAcetam 500 MG TAB PO SCH ×2 (08:35→20:40)
[2018-12-24] MEDS ORDERED: Sodium Chloride 0.9% 10 ML ONE ×2 (09:22→17:02)
[2018-12-25] MEDS: Meropenem 1 GM in Sodium Chloride 0.9% 100 ML IVPB SCH ×3 (02:20→18:30)
[2018-12-25] MEDS: Potassium Chloride 20 MEQ TAB PO SCH (08:47)
[2018-12-25] MEDS: Apixaban 5 MG TAB PO SCH ×2 (08:48→20:24)
[2018-12-25] MEDS: levETIRAcetam 500 MG TAB PO SCH ×2 (08:48→20:24)
[2018-12-25] MEDS: PHENOBARBITAL 32.4 MG TAB PO SCH ×2 (08:49→20:23)
--- NOTE | 2018-12-25 10:15 | PRG ---
DATE OF SERVICE: 12/25/2018 SUBJECTIVE: Ms. Cohen is a very pleasant 63-year-old black female, presented to the [place] [facility] for status epilepticus. She was given Dilantin, phenobarb, Keppra, and the seizure broke. She was transferred to intensive care unit and stabilized. She then was transferred back to [facility] for PT and OT. After several days, she developed DVT and pulmonary embolus and transferred to [facility], where she received tPA and did very well. She was transferred back to [facility] for PT and OT. She is doing well and walking much better. She should be ready for discharge by the end of the week. OBJECTIVE: VITAL SIGNS: Today reveal blood pressure slightly low at 86/53, pulse 72 to 76, respirations 18, O2 saturations 96% to 100% on room air, T-max 98.7. GENERAL: This is a well-developed, well-nourished, very pleasant 63-year-old black female, in no apparent distress at this time. HEENT: Normocephalic and nontraumatic cranium. Pupils are equally round and reactive. Extraocular movements are intact. Nose and throat are slightly dry. NECK: Supple without masses, nodes, or bruits. CHEST: Clear to auscultation and percussion. No rales, no rhonchi, no wheezes are heard. HEART: Reveals a regular rate and rhythm without murmurs, gallops, or rubs. ABDOMEN: Soft and nontender without organomegaly. Normal bowel sounds are noted. No rebound or guarding is noted. : Deferred. EXTREMITIES: Reveal no clubbing, cyanosis, or edema. ASSESSMENT: 1. Seizure disorder, presently on Keppra, Dilantin, and phenobarbital. 2. Status post large pulmonary embolus, probably saddle embolus. The patient is on Eliquis b.i.d. 3. Osteoarthritis. 4. History of bradycardia. 5. Encephalopathy, resolved. 6. Stage 3 acute on chronic renal insufficiency, resolved. 7. Generalized weakness. PLAN: 1. Continue to encourage the patient to eat and drink. 2. Continue to monitor the patient's renal insufficiency. 3. Monitor the patient's Dilantin level. 4. Decubitus precautions. 5. DVT prophylaxis. 6. Physical Therapy and Occupational Therapy. 7. Speech Therapy. 8. Anticipate discharge end of the week. Job ID: [id number]
--- NOTE | 2018-12-25 11:35 | PRG ---
DATE OF SERVICE: 12/24/[address] Yohana Lopez. SUBJECTIVE: The patient feels well, lying in bed, visiting with daughter, has no complaints. She still has an indwelling catheter in for urinary retention, and apparently until seen by Dr. Holcomb after discharge. She has been with Pseudomonas urinary tract infection and has been treated with meropenem by Dr. Santamaria 1 to 2 weeks, 2-week course She is feeling well and is ambulating well. She is on full-dose anticoagulation with apixaban 10 mg twice daily. OBJECTIVE: VITAL SIGNS: Temperature 98.7, pulse 76, respirations 18, O2 saturation 96% on room air, blood pressure 96/51. LUNGS: Clear. CARDIAC: Regular rhythm. ABDOMEN: Soft and nontender. ASSESSMENT: A 63-year-old black female with a history of large pulmonary embolus, on full-dose anticoagulation, tolerating well. 1. Seizure disorder. No recent seizures on increased medication. 2. Wilkerson catheter in place until seen by urologist, Dr. Holcomb. 3. Acute kidney injury, resolved. PLAN: 1. Continue with apixaban. 2. Continue Wilkerson catheter. 3. Continue OT and PT. 4. Dr. Santamaria will be tomorrow to discuss discharge planning. Job ID: [id number]
[2018-12-26] MEDS: Meropenem 1 GM in Sodium Chloride 0.9% 100 ML IVPB SCH ×3 (02:15→17:47)
[2018-12-26 05:44] LABS: #Eosinphils 0.1 thou/uL (0.0-0.7); #Monocytes 0.3 thou/uL (0.11-0.59); #Neutrophils 0.8 thou/uL (1.40-6.50); %Basophils 0.8 % (0.0-1.0); %Eosinophils 3.5 % (0.0-10.0); %Monocytes 14.3 % (0.0-10.0); %Neutrophils 34.4 % (42.0-75.0); Mean Corpuscular Hemoglobin 28.2 pg (27.0-31.0); Mean Corpuscular Volume 90.9 fL (78.0-98.0); Mean Platelet Volume 8.4 fL (7.4-10.4); Platelet Count 200 thou/uL (130-400); RBC Distribution Width 15.5 % (11.5-14.5); Red Blood Cell (RBC) Count 3.18 mill/uL (4.20-5.40); White Blood Cell (WBC) Count 2.2 thou/uL (4.8-10.8)
[2018-12-26 06:00] LABS: ALT (SGPT) 8 U/L (8-55); AST (SGOT) 13 U/L (5-34); Albumin 3.4 g/dL (3.4-4.8); Alkaline Phosphatase 66 U/L (40-110); Anion Gap 13 mmol/L (10-20); BUN (Urea Nitrogen) 10 mg/dL (9.8-20.1); Bilirubin, Total 0.2 mg/dL (0.2-1.2); Calc. Creatinine Clearance 95 mL/min (70-130); Calcium 9.4 mg/dL (7.8-10.44); Carbon Dioxide 26 mmol/L (23-31); Chloride 105 mmol/L (98-107); Estimated GFR-MDRD Greater than 90; Globulin 2.9 g/dL (2.4-3.5); Glucose 84 mg/dL (80-115); Potassium 4.7 mmol/L (3.5-5.1); Protein, Total 6.3 g/dL (6.0-8.3); Sodium 139 mmol/L (136-145)
[2018-12-26] MEDS: Apixaban 5 MG TAB PO SCH ×2 (08:42→20:26)
[2018-12-26] MEDS: Potassium Chloride 20 MEQ TAB PO SCH (08:44)
[2018-12-26] MEDS: levETIRAcetam 500 MG TAB PO SCH ×2 (08:45→20:26)
[2018-12-26] MEDS: PHENOBARBITAL 32.4 MG TAB PO SCH ×2 (08:53→20:28)
--- NOTE | 2018-12-26 21:37 | PRG ---
DATE OF SERVICE: 12/26/2018 SUBJECTIVE: Ms. Cohen is a pleasant 63-year-old black female, who had status epilepticus and presents to the [facility]. She was given Dilantin, phenobarb, and Keppra, and broke her seizures. She was transferred to intensive care unit and stabilized. She eventually was transferred to [facility] for PT and OT. She has actually done very well here and is being discharged most likely on or Tuesday. She is walking better. Her stamina has increased and she is eating better. OBJECTIVE: VITAL SIGNS: Revealed blood pressure slightly low at 97/66, pulse 64 to 66, respirations 18 to 19, O2 saturation 100% on room air T-max 98.1. GENERAL: This is a well-developed, well-nourished, pleasant black female, in no apparent distress at this time. HEENT: Normocephalic, nontraumatic cranium. Pupils are equal, round, and reactive. Extraocular movements are intact. Nose and throat are slightly dry. NECK: Supple without masses, nodes, or bruits. CHEST: Clear to auscultation. No rales, rhonchi, or wheezes heard. HEART: Reveals a regular rate and rhythm without murmurs, gallops, or rubs. ABDOMEN: Soft, nontender, without organomegaly. Normal bowel sounds noted. Slightly protuberant. No rebound or guarding is noted. : Deferred. EXTREMITIES: Reveal no clubbing, cyanosis, or edema. Just generalized weakness, which has much improved. ASSESSMENT: 1. Seizure disorder, presently controlled with no active seizures. 2. Status post large pulmonary embolus, status post saddle embolus post tPA and presently on Eliquis. 3. Osteoarthritis. 4. Bradycardia. 5. Encephalopathy, resolved. 6. Stage 3 acute on chronic renal sufficiency, resolved. 7. Generalized weakness. PLAN: 1. Continue present medications. 2. Continue physical therapy and occupational therapy. 3. Monitor the patient's renal insufficiency. 4. Monitor the patient's Dilantin level, which was 15 this morning. 5. Decubitus precautions. 6. DVT prophylaxis. 7. Speech Therapy. 8. Anticipate discharge end of the week. Job ID: [id number]
[2018-12-27] MEDS: Meropenem 1 GM in Sodium Chloride 0.9% 100 ML IVPB SCH ×3 (02:24→17:37)
[2018-12-27] MEDS: levETIRAcetam 500 MG TAB PO SCH ×2 (08:07→20:06)
[2018-12-27] MEDS: Apixaban 5 MG TAB PO SCH ×2 (08:08→20:06)
[2018-12-27] MEDS: Potassium Chloride 20 MEQ TAB PO SCH (08:08)
[2018-12-27] MEDS: PHENOBARBITAL 32.4 MG TAB PO SCH ×2 (08:13→20:06)
--- NOTE | 2018-12-27 12:55 | PRG ---
DATE OF SERVICE: 12/27/2018 SUBJECTIVE: Ms. Cohen is a very pleasant 63-year-old black female, who had status epilepticus, admitted to [facility]. She eventually was stabilized and transferred down to [facility] for PT and OT. She has actually done very well since she has been here. She is getting stronger every day and her discharge date is scheduled for Tuesday after lunch. There was some concern about getting her phenobarbital and I did call her in yesterday to [facility] and I told her that it is there. OBJECTIVE: VITAL SIGNS: Today reveal blood pressure this morning 97/66, pulse 64 to 69, respirations 18 to 19, O2 saturation 97% to 100% on room air, and T-max 98.1. GENERAL: This is a well-developed, well-nourished black female, in no apparent distress at this time. HEENT: Reveals normocephalic and nontraumatic cranium. Pupils are equal, round, and reactive. Extraocular movements are intact. Nose and throat are slightly dry. NECK: Supple without masses, nodes, or bruits. CHEST: Clear to auscultation. No rales, rhonchi, wheezes are heard. HEART: Reveals a regular rate and rhythm without murmurs, gallops, or rubs. ABDOMEN: Soft, nontender without organomegaly. Normal bowel sounds are noted. No rebound or guarding is noted. : Deferred. EXTREMITIES: Reveal generalized weakness, which is much improved. She has no clubbing, cyanosis, or edema. ASSESSMENT: 1. Seizure disorder, controlled well with a Dilantin of 15. 2. Status post large pulmonary embolus, status post saddle embolus, status post tPA, presently on Eliquis. 3. Osteoarthritis. 4. Bradycardia. 5. Encephalopathy, resolved. 6. Stage 3 acute on chronic renal insufficiency, resolved. 7. Generalized weakness. PLAN: 1. Continue present medications. 2. Continue physical therapy and occupational therapy. 3. Continue to monitor the patient's renal insufficiency and encourage her to drink well. 4. Continue present Dilantin dosing. 5. Decubitus precautions. 6. DVT prophylaxis. 7. Speech therapy. 8. Anticipate discharge on Tuesday. Job ID: [id number]
[2018-12-28] MEDS: Meropenem 1 GM in Sodium Chloride 0.9% 100 ML IVPB SCH ×2 (01:29→10:13)
[2018-12-28] MEDS: PHENOBARBITAL 32.4 MG TAB PO SCH ×2 (08:16→20:49)
[2018-12-28] MEDS: levETIRAcetam 500 MG TAB PO SCH ×2 (08:17→20:48)
[2018-12-28] MEDS: Potassium Chloride 20 MEQ TAB PO SCH (08:17)
[2018-12-28] MEDS: Apixaban 5 MG TAB PO SCH ×2 (08:17→20:48)
--- NOTE | 2018-12-28 19:44 | PRG ---
DATE OF SERVICE: 12/28/2018 SUBJECTIVE: Ms. Cohen is a very pleasant, well-developed, well-nourished black female, who unfortunately had status epilepticus. She was brought to [facility], admitted to the intensive care unit, and her seizures were stopped with phenobarbital, Dilantin, and Keppra. She was eventually stabilized and transferred to inpatient rehab swing bed at [facility]. She was here several days, when she unfortunately developed a DVT and a pulmonary embolus. She was transferred back to [facility] where she had tPA done, stayed 2 to 3 days, and transferred back to [facility] off oxygen and doing extremely well. Since that time, she has participated very well in physical therapy and has also reached maximum medical benefit. She is ready for discharge tomorrow. OBJECTIVE: VITAL SIGNS: Today reveal blood pressure 111/60, pulse 68 to 71, respirations 18, O2 saturation 94% to 98% on room air, T-max 98.9. GENERAL: This is a well-developed, well-nourished black female, in no apparent distress at this time. HEENT: Normocephalic and nontraumatic cranium. Pupils are equal, round, and reactive. Extraocular movements are intact. Nose and throat are slightly dry. NECK: Supple without masses, nodes, or bruits. CHEST: Clear to auscultation. No rales, rhonchi, wheezes are heard. HEART: Reveals a regular rate and rhythm without murmurs, gallops, or rubs. ABDOMEN: Soft, nontender without organomegaly. Normal bowel sounds are noted in all 4 quadrants. No rebound or guarding is noted. : Deferred. EXTREMITIES: Reveals generalized weakness, which is much improved. She has no clubbing, cyanosis, or edema. ASSESSMENT: 1. A seizure disorder, controlled well with Dilantin level of 15 and Keppra and phenobarbital. 2. Status post large pulmonary embolus, possible saddle embolus, status post tPA. Presently on Eliquis. 3. Osteoarthritis. 4. Bradycardia. 5. Encephalopathy, resolved. 6. Stage 3 acute on chronic renal insufficiency, resolved. 7. Generalized weakness. PLAN: 1. The patient is doing well and will be discharged tomorrow. 2. We will continue outpatient physical therapy. 3. Continue to monitor the patient's renal insufficiency as needed. Encourage the patient to drink well. 4. Continue present medications including Dilantin, Keppra, and phenobarbital. 5. Decubitus precautions. 6. Speech therapy to be continued. 7. Physical therapy to be continued. 8. Discharge tomorrow. Job ID: [id number]
[2018-12-29 08:04] VITALS: BP 98/55; TEMP 98.4
[2018-12-29] MEDS: Potassium Chloride 20 MEQ TAB PO SCH (08:27)
[2018-12-29] MEDS: levETIRAcetam 500 MG TAB PO SCH (08:27)
[2018-12-29] MEDS: PHENOBARBITAL 32.4 MG TAB PO SCH (08:28)
[2018-12-29] MEDS: Apixaban 5 MG TAB PO SCH (08:28)
--- NOTE | 2018-12-29 15:15 | DIS ---
DATE OF ADMISSION: 12/08/2018 DATE OF DISCHARGE: 12/29/2018 HISTORY OF PRESENT ILLNESS: Ms. Cohen is a very pleasant 63-year-old black female, who presented to [facility] in status epilepticus. She was admitted, received Dilantin, Keppra, and phenobarbital. She was stabilized and then she was transferred to [facility] for swing bed, physical therapy, and occupational therapy. After 3 to 4 days, the patient unfortunately developed DVT and pulmonary embolus and was transferred back to [facility], where she received tPA. She stayed 2 or 3 days there. She did extremely well and was transferred back to [facility], not requiring any oxygen at all. Since then, she has participated extremely well with physical therapy and occupational therapy and has now reached maximum medical benefit. She is walking, and her balance is much improved. She will continue with outpatient therapy, but is doing extremely well. She is ready for discharge today. DISCHARGE MEDICATIONS: Include the followin. Eliquis 5 mg twice a day. 2. Keppra 1000 mg twice a day. 3. Phenobarbital 32.4 mg 2 pills b.i.d. 4. Dilantin 400 mg daily. 5. Potassium 20 mEq daily. The patient did have her phenobarbital 64.8 mg b.i.d. sent to [facility] earlier this week. PHYSICAL EXAMINATION: VITAL SIGNS: Today reveal blood pressure 98/55, pulse 60 to 75, respirations 18 to 20, O2 saturation 95% to 97% on room air, and T-max 98.6. GENERAL: This is a well-developed, well-nourished, very pleasant black female, in no apparent distress at this time. HEENT: Reveals normocephalic and nontraumatic cranium. Pupils are equal, round, and reactive. Extraocular movements are intact. Nose and throat are slightly dry. NECK: Supple without masses, nodes, or bruits. CHEST: Clear to auscultation. No rales, rhonchi, wheezes, or cough is heard. HEART: Reveals a regular rate and rhythm without murmurs, gallops, or rubs. ABDOMEN: Soft and nontender without organomegaly. Normal bowel sounds are noted in all 4 quadrants. No rebound or guarding is noted. : Deferred. EXTREMITIES: Reveal no clubbing, cyanosis, or edema. Just plain weakness, which is much improved. ASSESSMENT: 1. Seizure disorder, controlled well with Dilantin, Keppra, and phenobarbital. 2. Status post deep venous thrombosis with large pulmonary emboli, status post tPA at [facility] and presently on Eliquis. 3. Osteoarthritis. 4. Bradycardia. 5. Encephalopathy, resolved. 6. Chronic renal insufficiency, stage 3, resolved. 7. Generalized weakness. PLAN: 1. The patient is to be discharged today. 2. She will continue her present medications. 3. She will continue to drink sufficient fluids and eat well. 4. Decubitus precautions. 5. She will continue outpatient therapy. 6. She is to follow up with Dr. Sharp, her primary care doctor, within the week. I spent more than 45 minutes discharging this patient and discussion with her, her medications, etc. Job ID: [id number]
== END 2018-12-29 14:56 | disposition home health service (06) | DRG 100 ==
LOC: NAV ACUTE 17:41
PROVIDERS: ADMIT Family Medicine; ATTEND Family Medicine
DX: G40.909 Epilepsy, unspecified, not intractable, without status epilepticus (principal); I26.99 Other pulmonary embolism without acute cor pulmonale; I82.409 Acute embolism and thrombosis of unspecified deep veins of unspecified lower extremity; N39.0 Urinary tract infection, site not specified; N13.30 Unspecified hydronephrosis; G93.40 Encephalopathy, unspecified; M19.90 Unspecified osteoarthritis, unspecified site; R00.1 Bradycardia, unspecified; N18.3 Chronic kidney disease, stage 3 (moderate); N28.9 Disorder of kidney and ureter, unspecified; D63.8 Anemia in other chronic diseases classified elsewhere
CPT/HCPCS: 36415; 80048; 80053; 80185; 81001; 83880; 84134; 85025; 87077; 87086; 87186; J2185; J3490

== ENCOUNTER 2019-01-23 16:59 | Emergency (ER) | payer MEDICARE, MEDICAID ==
[2019-01-23 18:20] LABS: #Eosinphils 0.2 thou/uL (0.0-0.7); #Lymphocytes 0.5 thou/uL (1.20-3.40); #Monocytes 0.2 thou/uL (0.11-0.59); #Neutrophils 3.5 thou/uL (1.40-6.50); %Basophils 0.9 % (0.0-1.0); %Eosinophils 4.1 % (0.0-10.0); %Lymphocytes 11.7 % (21.0-51.0); %Monocytes 5.4 % (0.0-10.0); Hemoglobin 9.8 g/dL (12.0-16.0); Mean Corpuscular HGB CONC 31.2 g/dL (32.0-36.0); Mean Corpuscular Volume 93.2 fL (78.0-98.0); Mean Platelet Volume 10.3 fL (7.4-10.4); Platelet Count 168 thou/uL (130-400); RBC Distribution Width 14.8 % (11.5-14.5); Red Blood Cell (RBC) Count 3.38 mill/uL (4.20-5.40); White Blood Cell (WBC) Count 4.5 thou/uL (4.8-10.8)
[2019-01-23 18:22] LABS: Bilirubin Negative (Negative); Blood, Urine Negative (Negative); Clarity Clear (Clear); Glucose, Urine (Dipstick) Negative (Negative); Leukocyte Negative (Negative); Nitrite Negative (Negative); Protein, Urine (Dipstick) Negative (Neg-Trace); Urobilinogen 0.2 mg/dL (Less than 2)
[2019-01-23 18:35] LABS: ALT (SGPT) 13 U/L (8-55); AST (SGOT) 20 U/L (5-34); Albumin 4.1 g/dL (3.4-4.8); Alkaline Phosphatase 87 U/L (40-110); Anion Gap 17 mmol/L (10-20); BUN (Urea Nitrogen) 15 mg/dL (9.8-20.1); Bilirubin, Total 0.3 mg/dL (0.2-1.2); CK (CPK) 173 U/L (29-168); Calc. Creatinine Clearance 0 mL/min (70-130); Carbon Dioxide 23 mmol/L (23-31); Chloride 101 mmol/L (98-107); Estimated GFR-MDRD 87; Glucose 82 mg/dL (80-115); Potassium 4.5 mmol/L (3.5-5.1); Protein, Total 7.1 g/dL (6.0-8.3); Sodium 136 mmol/L (136-145)
== END 2019-01-23 19:18 | disposition home or self-care (01) ==
LOC: NAV ERS 16:59
DX: I95.9 Hypotension, unspecified (principal); M19.90 Unspecified osteoarthritis, unspecified site; R00.1 Bradycardia, unspecified; Z79.899 Other long term (current) drug therapy
CPT/HCPCS: 80053; 81003; 82550; 84484; 85025; 93005

== ENCOUNTER 2019-02-17 22:36 | Emergency (ER) | payer MEDICARE, OTHER ==
[2019-02-17] MEDS ORDERED: Acetaminophen/Codeine 30-300mg Tablet ONE (23:11)
[2019-02-17] MEDS ORDERED: Clindamycin 150 MG CAP ONE (23:11)
== END 2019-02-17 23:18 | disposition home or self-care (01) ==
LOC: NAV ERS 22:36
DX: K04.7 Periapical abscess without sinus (principal); K02.9 Dental caries, unspecified; M19.90 Unspecified osteoarthritis, unspecified site; Z79.01 Long term (current) use of anticoagulants; Z79.899 Other long term (current) drug therapy
CPT/HCPCS: 99282

== ENCOUNTER 2019-03-25 13:01 | Emergency (ER) | payer MEDICARE, OTHER | END 2019-03-25 14:09 | disposition home or self-care (01) | LOC: NAV ERS 13:01 | DX: S46.212A Strain of muscle, fascia and tendon of other parts of biceps, left arm, initial encounter (principal); M19.90 Unspecified osteoarthritis, unspecified site; Z86.711 Personal history of pulmonary embolism; Z79.02 Long term (current) use of antithrombotics/antiplatelets; Z79.899 Other long term (current) drug therapy | CPT/HCPCS: 99283 ==

== ENCOUNTER 2019-04-02 13:17 | Emergency (ER) | payer MEDICARE, OTHER | END 2019-04-02 13:45 | disposition home or self-care (01) | LOC: NAV ERS 13:17 | DX: R19.00 Intra-abdominal and pelvic swelling, mass and lump, unspecified site (principal); M19.90 Unspecified osteoarthritis, unspecified site; Z79.899 Other long term (current) drug therapy | CPT/HCPCS: 99282 ==

== ENCOUNTER 2019-05-23 16:16 | Emergency (ER) | payer MEDICARE, OTHER ==
[2019-05-23] MEDS ORDERED: Acetaminophen 500 MG TAB ONE (16:46)
[2019-05-23] MEDS ORDERED: Sodium Chloride 0.9% 1,000 ML ONE (16:59)
[2019-05-23 17:07] LABS: #Monocytes 0.7 thou/uL (0.11-0.59); #Neutrophils 5.6 thou/uL (1.40-6.50); %Basophils 0.7 % (0.0-1.0); %Eosinophils 0.1 % (0.0-10.0); %Lymphocytes 13.8 % (21.0-51.0); %Monocytes 9.8 % (0.0-10.0); %Neutrophils 75.7 % (42.0-75.0); Hemoglobin 13.3 g/dL (12.0-16.0); Mean Corpuscular HGB CONC 30.9 g/dL (32.0-36.0); Mean Corpuscular Hemoglobin 29.2 pg (27.0-31.0); Mean Corpuscular Volume 94.5 fL (78.0-98.0); Mean Platelet Volume 11.2 fL (7.4-10.4); Platelet Count 146 thou/uL (130-400); RBC Distribution Width 13.6 % (11.5-14.5); Red Blood Cell (RBC) Count 4.55 mill/uL (4.20-5.40); White Blood Cell (WBC) Count 7.4 thou/uL (4.8-10.8)
[2019-05-23 17:27] LABS: ALT (SGPT) 19 U/L (8-55); AST (SGOT) 22 U/L (5-34); Albumin 4.6 g/dL (3.4-4.8); Alkaline Phosphatase 91 U/L (40-110); Anion Gap 18 mmol/L (10-20); BUN (Urea Nitrogen) 11 mg/dL (9.8-20.1); Bilirubin, Total 0.5 mg/dL (0.2-1.2); Calc. Creatinine Clearance 0 mL/min (70-130); Calcium 9.7 mg/dL (7.8-10.44); Carbon Dioxide 24 mmol/L (23-31); Chloride 99 mmol/L (98-107); Estimated GFR-MDRD Greater than 90; Globulin 3.6 g/dL (2.4-3.5); Glucose 102 mg/dL (80-115); Potassium 4.4 mmol/L (3.5-5.1); Protein, Total 8.2 g/dL (6.0-8.3); Sodium 137 mmol/L (136-145)
[2019-05-23] MEDS ORDERED: Meropenem 500 MG VIAL ONE (17:43)
[2019-05-23] MEDS ORDERED: Sodium Chloride 0.9% 0 ML ONE (17:58)
--- NOTE | 2019-05-23 18:33 | CT ---
CT FACIAL BONES WITH IV CONTRAST 05/23/19 PROVIDED CLINICAL HISTORY: Facial pain and swelling. FINDINGS: There is conspicuous increased density and reticulation of the subcutaneous adipose layer involving t he right perimandibular region, compatible with cellulitis. There is a 1.1 cm rim enhancing fluid col lection adjacent to the right mandibular ramus anteriorly, compatible with odontogenic soft tissue ab scess. Multiple dental caries and periodontal disease are demonstrated. The globes and other orbital contents appear normal. There is minimal mucosa thickening seen involvin g the ethmoid air cells. The paranasal sinuses are otherwise free of significant opacity. Presumably reactive jugulodigastric lymph nodes are present bilaterally. The regional vascular structures demons trate no acute process. The visualized intracranial contents appear unremarkable. IMPRESSION: Right perimandibular facial cellulitis and associated juxta-mandibular odontogenic abscess. POS: BRITTNI
== END 2019-05-23 19:10 | disposition short-term general hospital (02) ==
LOC: NAV ERS 16:16
DX: L02.01 Cutaneous abscess of face (principal); M27.2 Inflammatory conditions of jaws; K02.9 Dental caries, unspecified
CPT/HCPCS: 36415; 70487; 80053; 83605; 85025; 87040; 96361; 96365; J2185; J3490; J7050

== ENCOUNTER 2020-03-20 07:48 | Emergency (ER) | payer MEDICARE, OTHER ==
[2020-03-20] MEDS ORDERED: Lorazepam 2 MG/ML VIAL ONE (08:03)
[2020-03-20 08:45] LABS: ALT (SGPT) 11 U/L (8-55); AST (SGOT) 17 U/L (5-34); Albumin 4.1 g/dL (3.4-4.8); Alkaline Phosphatase 100 U/L (40-110); Anion Gap 14 mmol/L (10-20); BUN (Urea Nitrogen) 16 mg/dL (9.8-20.1); Bilirubin, Total 0.2 mg/dL (0.2-1.2); Calc. Creatinine Clearance 0 mL/min (70-130); Calcium 9.2 mg/dL (7.8-10.44); Carbon Dioxide 27 mmol/L (23-31); Chloride 103 mmol/L (98-107); Globulin 3.7 g/dL (2.4-3.5); Glucose 86 mg/dL (80-115); Protein, Total 7.8 g/dL (5.8-8.1); Sodium 140 mmol/L (136-145)
[2020-03-20 08:49] LABS: #Eosinphils 0.1 thou/uL (0.0-0.7); #Lymphocytes 0.7 thou/uL (1.20-3.40); #Monocytes 0.3 thou/uL (0.11-0.59); #Neutrophils 1.7 thou/uL (1.40-6.50); %Basophils 1.3 % (0.0-1.0); %Eosinophils 3.2 % (0.0-10.0); %Lymphocytes 25.3 % (21.0-51.0); %Monocytes 9.9 % (0.0-10.0); %Neutrophils 60.3 % (42.0-75.0); Hemoglobin 13.2 g/dL (12.0-16.0); Mean Corpuscular HGB CONC 32.4 g/dL (32.0-36.0); Mean Corpuscular Hemoglobin 30.1 pg (27.0-31.0); Mean Corpuscular Volume 92.9 fL (78.0-98.0); Mean Platelet Volume 10.4 fL (7.4-10.4); Platelet Count 100 thou/uL (130-400); RBC Distribution Width 13.1 % (11.5-14.5); Red Blood Cell (RBC) Count 4.41 mill/uL (4.20-5.40); White Blood Cell (WBC) Count 2.8 thou/uL (4.8-10.8)
[2020-03-20 10:42] LABS: Bilirubin Negative (Negative); Clarity Clear (Clear); Glucose, Urine (Dipstick) Negative (Negative); Ketone, Urine Negative (Negative); Leukocyte Negative (Negative); Nitrite Negative (Negative); Protein, Urine (Dipstick) Negative (Neg-Trace); Specific Gravity, Urine 1.025 (1.005-1.030); Urobilinogen 0.2 mg/dL (Less than 2)
[2020-03-20 10:43] LABS: Blood, Urine Negative (Negative)
== END 2020-03-20 11:45 | disposition home or self-care (01) ==
LOC: NAV ERS 07:48
DX: R56.9 Unspecified convulsions (principal); R60.0 Localized edema; M19.90 Unspecified osteoarthritis, unspecified site; Z79.01 Long term (current) use of anticoagulants; Z79.899 Other long term (current) drug therapy; Z86.718 Personal history of other venous thrombosis and embolism; Z86.711 Personal history of pulmonary embolism
CPT/HCPCS: 80053; 81003; 85025; 96374; J2060

== ENCOUNTER 2020-08-02 06:18 | Emergency (ER) | payer MEDICARE, OTHER | END 2020-08-02 09:40 | disposition home or self-care (01) | LOC: NAV ERS 06:18 | DX: R56.9 Unspecified convulsions (principal); S70.02XA Contusion of left hip, initial encounter; Z86.711 Personal history of pulmonary embolism; Z86.718 Personal history of other venous thrombosis and embolism; Z79.01 Long term (current) use of anticoagulants; Z79.899 Other long term (current) drug therapy; W19.XXXA Unspecified fall, initial encounter | CPT/HCPCS: 70450; 80185 ==

== ENCOUNTER 2021-07-17 11:50 | Emergency (ER) | payer OTHER ==
[2021-07-17 13:33] LABS: ALT (SGPT) 14 U/L (8-55); AST (SGOT) 20 U/L (5-34); Albumin 4.3 g/dL (3.4-4.8); Alkaline Phosphatase 123 U/L (40-110); Anion Gap 15 mmol/L (10-20); BUN (Urea Nitrogen) 12 mg/dL (9.8-20.1); Bilirubin, Total 0.2 mg/dL (0.2-1.2); Calc. Creatinine Clearance 0 mL/min (70-130); Carbon Dioxide 26 mmol/L (23-31); Chloride 104 mmol/L (98-107); Globulin 3.3 g/dL (2.4-3.5); Glucose 83 mg/dL (80-115); Potassium 3.4 mmol/L (3.5-5.1); Protein, Total 7.6 g/dL (5.8-8.1); Sodium 142 mmol/L (136-145)
[2021-07-17 13:35] LABS: #Lymphocytes 0.7 thou/uL (1.20-3.40); #Monocytes 0.4 thou/uL (0.11-0.59); #Neutrophils 1.3 thou/uL (1.40-6.50); %Basophils 0.7 % (0.0-1.0); %Eosinophils 1.9 % (0.0-10.0); %Lymphocytes 28.7 % (21.0-51.0); %Monocytes 16.9 % (0.0-10.0); %Neutrophils 51.8 % (42.0-75.0); Hemoglobin 13.2 g/dL (12.0-16.0); Mean Corpuscular HGB CONC 29.2 g/dL (32.0-36.0); Mean Corpuscular Hemoglobin 28.7 pg (27.0-31.0); Mean Corpuscular Volume 98.2 fL (78.0-98.0); Mean Platelet Volume 11.1 fL (7.4-10.4); Platelet Count 135 thou/uL (130-400); RBC Distribution Width 13.3 % (11.5-14.5); White Blood Cell (WBC) Count 2.5 thou/uL (4.8-10.8)
[2021-07-17 14:08] LABS: Bilirubin Negative (Negative); Blood, Urine Trace (Negative); Clarity Clear (Clear); Glucose, Urine (Dipstick) Negative (Negative); Ketone, Urine Negative (Negative); Leukocyte Negative (Negative); Nitrite Negative (Negative); Protein, Urine (Dipstick) Negative (Neg-Trace); Urobilinogen 0.2 mg/dL (Less than 2)
[2021-07-17 14:09] LABS: RBC/HPF 0-3 HPF (0-3)
== END 2021-07-17 14:52 | disposition home or self-care (01) ==
LOC: NAV ERS 11:50
DX: S40.012A Contusion of left shoulder, initial encounter (principal); G40.909 Epilepsy, unspecified, not intractable, without status epilepticus; M19.90 Unspecified osteoarthritis, unspecified site; Z79.01 Long term (current) use of anticoagulants; Z79.899 Other long term (current) drug therapy; Z86.711 Personal history of pulmonary embolism; Z86.718 Personal history of other venous thrombosis and embolism; W07.XXXA Fall from chair, initial encounter
CPT/HCPCS: 70450; 72125; 80053; 80185; 81003; 81015; 85025

== ENCOUNTER 2022-04-24 11:40 | Emergency (ER) | payer MEDICARE, OTHER ==
[2022-04-24 12:45] LABS: #Eosinphils 0.1 thou/uL (0.0-0.7); #Lymphocytes 0.9 thou/uL (1.20-3.40); #Monocytes 0.3 thou/uL (0.11-0.59); #Neutrophils 1.1 thou/uL (1.40-6.50); %Basophils 0.5 % (0.0-1.0); %Eosinophils 4.6 % (0.0-10.0); %Lymphocytes 36.7 % (21.0-51.0); %Monocytes 11.5 % (0.0-10.0); %Neutrophils 46.8 % (42.0-75.0); Hemoglobin 12.8 g/dL (12.0-16.0); Mean Corpuscular Hemoglobin 29.2 pg (27.0-31.0); Mean Corpuscular Volume 97.6 fl (78.0-98.0); Mean Platelet Volume 10.8 fL (7.4-10.4); Platelet Count 112 10x3/uL (130-400); RBC Distribution Width 13.7 % (11.5-14.5); Red Blood Cell (RBC) Count 4.38 mill/uL (4.20-5.40); White Blood Cell (WBC) Count 2.4 10x3/uL (4.8-10.8)
[2022-04-24 12:57] LABS: Anion Gap 18 mmol/L (10-20); BUN (Urea Nitrogen) 11 mg/dL (9.8-20.1); Calc. Creatinine Clearance 0 mL/min (70-130); Calcium 8.8 mg/dL (7.8-10.44); Carbon Dioxide 19 mmol/L (23-31); Chloride 108 mmol/L (98-107); Estimated GFR 94; Glucose 62 mg/dL (80-115); Potassium 4.1 mmol/L (3.5-5.1); Sodium 141 mmol/L (136-145)
[2022-04-24 13:04] LABS: Bilirubin Negative (Negative); Blood, Urine Negative (Negative); Clarity Clear (Clear); Glucose, Urine (Dipstick) Negative (Negative); Ketone, Urine Negative (Negative); Leukocyte Negative (Negative); Nitrite Negative (Negative); Protein, Urine (Dipstick) Negative (Neg-Trace); Urobilinogen 0.2 mg/dL (Less than 2); pH, Urine 7.5 (5.0-9.0)
== END 2022-04-24 13:33 | disposition home or self-care (01) ==
LOC: NAV ERS 11:40
DX: S29.011A Strain of muscle and tendon of front wall of thorax, initial encounter (principal); R56.9 Unspecified convulsions; D72.819 Decreased white blood cell count, unspecified; Z79.01 Long term (current) use of anticoagulants
CPT/HCPCS: 80048; 81003; 85025; 99284

== ENCOUNTER 2023-01-07 08:34 | Emergency (ER) | payer OTHER ==
[2023-01-07] MEDS ORDERED: Acetaminophen 500 MG TAB ONE (09:27)
== END 2023-01-07 10:25 | disposition home or self-care (01) ==
LOC: NAV ERS 08:34
DX: M67.853 Other specified disorders of tendon, right hip (principal); M16.11 Unilateral primary osteoarthritis, right hip
CPT/HCPCS: 72170

== ENCOUNTER 2023-03-28 11:14 | Emergency (ER) | payer OTHER ==
[2023-03-28 12:39] LABS: #Lymphocytes 0.7 thou/uL (1.20-3.40); #Monocytes 0.3 thou/uL (0.11-0.59); #Neutrophils 2.2 thou/uL (1.40-6.50); %Basophils 0.7 % (0.0-1.0); %Eosinophils 1.3 % (0.0-10.0); %Lymphocytes 20.8 % (21.0-51.0); %Monocytes 8.4 % (0.0-10.0); %Neutrophils 68.9 % (42.0-75.0); Hematocrit 34.4 % (36.0-47.0); Hemoglobin 10.7 g/dL (12.0-16.0); Mean Corpuscular Hemoglobin 28.7 pg (27.0-31.0); Mean Corpuscular Volume 92.4 fl (78.0-98.0); Mean Platelet Volume 8.3 fL (7.4-10.4); Platelet Count 182 10x3/uL (130-400); Red Blood Cell (RBC) Count 3.73 mill/uL (4.20-5.40); White Blood Cell (WBC) Count 3.2 10x3/uL (4.8-10.8)
[2023-03-28 12:53] LABS: Troponin I 0.156 ng/mL (< 0.028)
[2023-03-28 13:08] LABS: ALT (SGPT) 10 U/L (8-55); AST (SGOT) 13 U/L (5-34); Albumin 3.8 g/dL (3.4-4.8); Alkaline Phosphatase 110 U/L (40-110); Anion Gap 11 mmol/L (10-20); BUN (Urea Nitrogen) 16 mg/dL (9.8-20.1); Bilirubin, Total 0.2 mg/dL (0.2-1.2); Calc. Creatinine Clearance 0 mL/min (70-130); Calcium 8.1 mg/dL (7.8-10.44); Carbon Dioxide 25 mmol/L (23-31); Chloride 108 mmol/L (98-107); Estimated GFR 95; Globulin 3.1 g/dL (2.4-3.5); Glucose 171 mg/dL (80-115); Magnesium 2.4 mg/dL (1.6-2.6); Potassium 3.8 mmol/L (3.5-5.1); Protein, Total 6.9 g/dL (5.8-8.1); Sodium 140 mmol/L (136-145)
[2023-03-28] MEDS ORDERED: Aspirin Chewable 81 MG TAB ONE (13:23)
[2023-03-28 13:44] LABS: Bilirubin Negative (Negative); Blood, Urine Negative (Negative); Clarity Clear (Clear); Glucose, Urine (Dipstick) 100 mg/dL (Negative); Ketone, Urine Negative (Negative); Leukocyte Negative (Negative); Nitrite Negative (Negative); Protein, Urine (Dipstick) Trace mg/dL (Neg-Trace); pH, Urine 7.5 (5.0-9.0)
[2023-03-28 13:57] LABS: Bacteria/HPF Rare-Few HPF (None Seen); CAUTI Indications for Culture Alt mental st,lethar; RBC/HPF None Seen HPF (0-3); Squamous Epithelial 0-3 HPF (0-3); WBC/HPF None Seen HPF (0-3)
[2023-03-28 13:58] LABS: Urine Culture Reflex No No
[2023-03-28 16:01] LABS: Troponin I 0.198 ng/mL (< 0.028)
== END 2023-03-28 18:06 | disposition short-term general hospital (02) ==
LOC: NAV ERS 11:14
DX: R53.1 Weakness (principal); R79.89 Other specified abnormal findings of blood chemistry; R60.0 Localized edema
CPT/HCPCS: 36416; 51701; 70450; 71045; 80053; 81001; 83735; 83880; 84484; 85025; 93005; 94760; 36415-59